=== PATIENT | male | born 1965 | race Caucasian/White ===

== ENCOUNTER → 2017-01-28 | Outpatient (CLI) | payer BC ==
--- NOTE | 2017-01-29 08:23 | US ---
EXAMINATION TYPE: US scrotum with doppler. Grayscale and color Doppler Duplex imaging performed of t kristen scrotum. DATE OF EXAM: 01/28/2017 COMPARISON: NONE CLINICAL HISTORY: Swelling Left testicular N50.89. EXAM MEASUREMENTS: TESTICLES: Right Testicle: 3.6 x 2.6 x 3.7 cm Left Testicle: 3.3 x 2.5 x 3.5 cm EPIDIDYMIS HEAD: Right Epididymis: 0.6 x 0.8 x 0.8 cm Left Epididymis: 1.1 x 0.9 x 1.1 cm Doppler performed to assess for testicular vascularity; good bilateral color flow and waveforms are s een. There is no evidence of testicular torsion. Presence of hydroceles: NO Presence of varicoceles: NO IMPRESSION: 1. Normal testicular ultrasound
== END | disposition home or self-care (01) ==
LOC: RADUSMAIN 16:52
PROVIDERS: ATTEND Physician Assistant Medical
DX: N45.1 Epididymitis (principal); N50.89 Other specified disorders of the male genital organs
CPT/HCPCS: 76870; 93975

== ENCOUNTER 2017-07-23 10:31 | Day surgery (SDC) | payer BC, OTHER ==
[2017-07-22 11:18] VITALS: BMI 38.7
[~2017-07-23 10:31] MED LIST: LACTATED RINGERS 1,000 ML IV SCH
[2017-07-23 11:36] VITALS: RESP 16; TEMP 97.6
[2017-07-23] MEDS ORDERED: LIDOCAINE 1% 20 ML VIAL (10MG/ML) FOR IV START INTRADERMA ONE (11:36)
[2017-07-23 11:55] LABS: Anisocytosis Marked; Basophils # (A) 0.1 k/uL (0-0.2); Basophils % (A) 1 %; Eosinophils # (A) 0.2 k/uL (0-0.7); Eosinophils % (A) 3 %; HGB 12.8 gm/dL (13.0-17.5); Hypochromasia Marked; Lymphocytes # (A) 2.3 k/uL (1.0-4.8); Lymphocytes % (A) 37 %; MCH 20.6 pg (25.0-35.0); MCHC 30.5 g/dL (31.0-37.0); MCV 67.5 fL (80.0-100.0); Mean Platelet Volume 6.6; Microcytosis Marked; Monocytes # (A) 0.4 k/uL (0-1.0); Monocytes % (A) 7 %; Neutrophils # (A) 3.2 k/uL (1.3-7.7); Neutrophils % (A) 50 %; Platelet Count 388 k/uL (150-450); RBC 6.22 m/uL (4.30-5.90); WBC 6.3 k/uL (3.8-10.6)
[2017-07-23 12:01] LABS: RDW 27.2 % (11.5-15.5)
[2017-07-23] MEDS ORDERED: PROPOFOL 10 MG/ML 20 ML VIAL IV ONE (12:42)
[2017-07-23] MEDS ORDERED: MIDAZOLAM 2 MG/2 ML VIAL ONE (12:42)
[2017-07-23] MEDS ORDERED: fentaNYL (PF) 50 MCG/ML 2 ML AMP ONE (12:42)
--- NOTE | 2017-07-23 13:00 | P.PCN ---
Date of Procedure: 07/23/17 Procedure(s) Performed: BRIEF HISTORY: Patient is a 52-year-old, pleasant, white male, scheduled for an upper endoscopy as a part of evaluation of the iron deficiency anemia. He did have an EGD and colonoscopy in December 2015 showed gastritis and colon polyps. Recently has been having worsening GERD and has been on Prilosec 20 mg daily. He scheduled for an upper endoscopy to rule out any upper GI pathology.. PROCEDURE PERFORMED: Esophagogastroduodenoscopy with biopsy. PREOPERATIVE DIAGNOSIS: Epigastric pain/GERD. IV sedation per anesthesia. PROCEDURE: After informed consent was obtained, the patient was brought into the endoscopy unit. IV sedation was administered by Anesthesia under continuous monitoring. Initially the Olympus GIF-140 video endoscope was inserted into the mouth. Esophagus intubated without any difficulty. It was gradually advanced into the stomach and duodenum and carefully examined. The bulb and the second part of the duodenum appeared normal. Biopsies were done from the duodenum to rule out celiac disease. The scope at this time was withdrawn to the stomach, adequately insufflated with air, and upon careful examination, mucosa of the antrum, had patchy areas of erythema consistent with gastritis and biopsies were done from this area. The body, cardia and the fundus appeared normal. The scope was then withdrawn into the esophagus. The GE junction was located at 39 cm from the incisors. The esophagus appeared normal. There were no erosions or ulcerations seen and the patient tolerated the procedure well. IMPRESSION: 1. Mild antral gastritis. 2. No evidence of esophagitis or peptic ulcer disease. RECOMMENDATIONS: The findings of this examination were discussed with the patient as well as his family. He was advised to follow with the biopsy results. He will continue with Prilosec 20 mg daily and follow a reflux measures..
[2017-07-23 13:47] VITALS: BP 124/76; PULSE 71
[2017-07-23 15:58] LABS: Iron Saturation 5.38 (15.00-50.00)
== END 2017-07-23 13:55 | disposition home or self-care (01) ==
LOC: ORWHC2ENDO 10:31
PROVIDERS: ATTEND Internal Medicine Gastroenterology
DX: K29.50 Unspecified chronic gastritis without bleeding (principal); D50.9 Iron deficiency anemia, unspecified; E78.5 Hyperlipidemia, unspecified; Z79.899 Other long term (current) drug therapy; Z88.5 Allergy status to narcotic agent
CPT/HCPCS: 88305; 82747; 82728; 83540; 83550; 85025; 88342; 43239; J2250; J3010; J2704

== ENCOUNTER 2017-08-18 08:21 | Day surgery (SDC) | payer OTHER ==
[2017-08-16 09:27] VITALS: BMI 38.7
[~2017-08-18 08:21] MED LIST changes: +LIDOCAINE 1% 20 ML VIAL (10MG/ML) FOR IV START INTRADERMA PRN
[2017-08-18 08:38] VITALS: TEMP 98.2
[2017-08-18] MEDS ORDERED: PROPOFOL 10 MG/ML 20 ML VIAL IV ONE (08:59)
[2017-08-18] MEDS ORDERED: KETAMINE 10 MG/ML 20 ML VIAL ONE (08:59)
--- NOTE | 2017-08-18 09:22 | P.PCN ---
Date of Procedure: 08/18/17 Procedure(s) Performed: BRIEF HISTORY: Patient is a 52-year-old pleasant white male, scheduled for an elective colonoscopy as a part of evaluation of intermittent rectal bleeding for the last few days duration. He also has prior history of colon polyps. PROCEDURE PERFORMED: Colonoscopy. PREOPERATIVE DIAGNOSIS: Intermittent rectal bleeding and prior history of colon polyps. IV sedation per Anesthesia. PROCEDURE: After informed consent was obtained, the patient, was brought into the endoscopy unit. IV sedation was administered by Anesthesia under continuous monitoring. Digital rectal examination was normal. Initially the Olympus CF- 160 flexible video colonoscope was then inserted in the rectum, gradually advanced into the cecum without any difficulty. Careful examination was performed as the scope was gradually being withdrawn. Ileocecal valve and the appendiceal orifice were visualized and appeared normal. Prep was excellent. Mucosa of the cecum, ascending colon, transverse colon, descending colon, sigmoid colon, and rectum appeared normal. Scattered sigmoid diverticulosis seen. Retroflexion was performed in the rectum and small internal hemorrhoids were seen. The patient tolerated the procedure well. IMPRESSION: Scattered sigmoid diverticulosis Small internal hemorrhoids No evidence of colorectal neoplasia. RECOMMENDATIONS: Findings of this examination were discussed with the patient as well as his family. He was advised to have a repeat surveillance colonoscopy in 5 years from now because of the prior history of colon polyps..
[2017-08-18 09:28] VITALS: RESP 18
[2017-08-18 09:55] VITALS: BP 139/76; PULSE 69
== END 2017-08-18 10:11 | disposition home or self-care (01) ==
LOC: ORWHC2ENDO 08:21
PROVIDERS: ATTEND Internal Medicine Gastroenterology
DX: K57.30 Diverticulosis of large intestine without perforation or abscess without bleeding (principal); K64.8 Other hemorrhoids; Z86.010 Personal history of colon polyps; K21.9 Gastro-esophageal reflux disease without esophagitis; E66.9 Obesity, unspecified; Z68.38 Body mass index [BMI] 38.0-38.9, adult; Z88.5 Allergy status to narcotic agent; Z79.899 Other long term (current) drug therapy
CPT/HCPCS: 45378; J2704

== ENCOUNTER → 2018-04-13 | Outpatient (CLI) | payer OTHER ==
[2018-04-13 09:31] LABS: Basophils # (A) 0.1 k/uL (0-0.2); Basophils % (A) 1 %; Eosinophils # (A) 0.3 k/uL (0-0.7); Eosinophils % (A) 6 %; HCT 43.7 % (39.0-53.0); HGB 14.1 gm/dL (13.0-17.5); Hypochromasia Slight; Lymphocytes # (A) 2.1 k/uL (1.0-4.8); Lymphocytes % (A) 39 %; MCH 25.5 pg (25.0-35.0); MCHC 32.3 g/dL (31.0-37.0); MCV 78.9 fL (80.0-100.0); Mean Platelet Volume 6.5; Monocytes # (A) 0.4 k/uL (0-1.0); Monocytes % (A) 7 %; Neutrophils # (A) 2.3 k/uL (1.3-7.7); Neutrophils % (A) 43 %; Platelet Count 341 k/uL (150-450); Poikilocytosis Slight; RBC 5.53 m/uL (4.30-5.90); RDW 13.7 % (11.5-15.5); WBC 5.3 k/uL (3.8-10.6)
== END | disposition home or self-care (01) ==
LOC: LABWHC1 08:34
PROVIDERS: ATTEND Internal Medicine Gastroenterology
DX: D64.9 Anemia, unspecified (principal)
CPT/HCPCS: 36415; 85025

== ENCOUNTER → 2021-12-26 | Outpatient (CLI) | payer BC ==
--- NOTE | 2021-12-28 09:04 | XR ---
EXAMINATION TYPE: XR knee complete RT DATE OF EXAM: 12/26/2021 3:56 PM INDICATION: Patient age:Male; 56 years old; Reason for study: [id number] RT KNEE PAIN; COMPARISON: None. TECHNIQUE: The Right knee(s) was examined in frontal, lateral and oblique projections. FINDINGS: No evidence of any acute osseous pathology, joint space narrowing, or soft tissue swellin g. As well as present. There is mild tibial plateau, femoral condyle and patellar osteophyte formatio n. Lateral view is slightly limited but there appears to be related suprapatellar joint effusion. IMPRESSION: 1. No acute osseous pathology. 2. Mild tricompartmental osteoarthritic changes with suspected right knee joint effusion.
== END | disposition home or self-care (01) ==
LOC: RADXRYALE 15:46
PROVIDERS: ATTEND Physician Assistant
DX: M17.11 Unilateral primary osteoarthritis, right knee (principal)

== ENCOUNTER 2023-02-11 17:02 | Inpatient (IN) | payer BC ==
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
[2023-02-11] MEDS ORDERED: SODIUM CHLORIDE 0.9% 1,000 ML IV STA (18:27)
[2023-02-11 19:08] LABS: Basophils % (A) 1 %; Eosinophils # (A) 0.3 k/uL (0-0.7); Eosinophils % (A) 5 %; HCT 47.9 % (39.0-53.0); Lymphocytes # (A) 2.1 k/uL (1.0-4.8); Lymphocytes % (A) 30 %; MCH 29.8 pg (25.0-35.0); MCHC 35.6 g/dL (31.0-37.0); MCV 83.7 fL (80.0-100.0); Monocytes # (A) 0.5 k/uL (0-1.0); Monocytes % (A) 7 %; Neutrophils % (A) 56 %; Platelet Count 258 k/uL (150-450); RBC 5.72 m/uL (4.30-5.90); RDW 12.9 % (11.5-15.5); WBC 7.2 k/uL (3.8-10.6)
[2023-02-11 19:19] LABS: INR 0.9 (<1.2); Partial Thromboplastin Time 24.9 sec (22.0-30.0); Prothrombin Time 10.1 sec (9.0-12.0)
[2023-02-11 19:20] LABS: ALT 51 U/L (4-49); AST 32 U/L (17-59); African American GFR (CKD) >90 (>60 ml/min/1.73 sqM); Albumin 4.4 g/dL (3.5-5.0); Alkaline Phosphatase 73 U/L (38-126); Anion Gap 10 mmol/L; Blood Urea Nitrogen 25 mg/dL (9-20); Calcium 9.5 mg/dL (8.4-10.2); Carbon Dioxide 24 mmol/L (22-30); Chloride 104 mmol/L (98-107); Glucose 94 mg/dL (74-99); Magnesium 2.1 mg/dL (1.6-2.3); Non-African American GFR(CKD) 80 (>60 ml/min/1.73 sqM); Phosphorus 3.8 mg/dL (2.5-4.5); Potassium 4.1 mmol/L (3.5-5.1); Sodium 138 mmol/L (137-145); Total Bilirubin 0.7 mg/dL (0.2-1.3); Total Protein 7.5 g/dL (6.3-8.2)
--- NOTE | 2023-02-11 19:23 | CT ---
EXAMINATION TYPE: CT brain wo con DATE OF EXAM: 02/11/2023 COMPARISON: 1 HISTORY: neuro deficit, headache CT DLP: 1104.[address] of the brain was performed. The ventricles, basal cisterns and sulci overlying the cerebral convexities demonstrate mild enlargem ent. Small area of decreased attenuation left thalamus also reflect acute ischemic insult. No evidenc e for cortical insult on today's study. There is no evidence for intracranial hemorrhage or sulcal effacement. There is decreased attenuation about the periventricular white matter and deep white matter of both c erebral hemispheres, compatible with chronic small vessel ischemia. Differential diagnosis does inclu de demyelination. No mass effects are seen.No midline shift. Osseous calvarium is intact. If symptoms persist consider MRI. IMPRESSION: 1. Acute left thalamic insult. No evidence for cortical insult or hemorrhagic transformation.
--- NOTE | 2023-02-11 19:43 | CT ---
EXAMINATION TYPE: CT angio head neck DATE OF EXAM: 02/11/2023 COMPARISON: none HISTORY: Suspected Stroke. CT DLP: 604.8 mGycm CONTRAST: Performed with IV Contrast, patient injected with 65 ml mL of Isovue 370. Combination Contrast CTA cervical carotids and [place] CTA cervical carotids with 3-D recons truction Contrast CTA of the cervical carotids was performed 3-D reconstruction imaging obtained at a separate workstation. Right carotid system: Mild plaque is seen of the right common carotid artery. There is mild plaque a lso noted at the carotid bulb and proximal ICA. No significant diameter reduction. ECA is patent. Right vertebral artery appears unremarkable. Left carotid system: Mild plaque is seen of the left common carotid artery. There is mild plaque als o noted at the carotid bulb and proximal ICA. No significant diameter reduction. ECA is patent. Lef t vertebral artery appears unremarkable. IMPRESSION: 1. No significant diameter reduction to account for the patient's symptoms. CTA the [place] with 3-D reconstruction Contrast CTA of the the [place] was performed 3-D reconstruction imaging obtained at a separate workstation. Vertebrobasilar system as well as intracranial portions of the internal carotid arteries and their ma ubaldo tributaries are patent. I do not see evidence for sizable aneurysm or vascular malformation. Pl ease note MRI provides greater sensitivity and specificity. Visualized brain appears grossly unremar kable. IMPRESSION: 1. No significant abnormality. NASCET criteria was used in interpretation of this exam?
[2023-02-11] MEDS ORDERED: ASPIRIN 325 MG TAB PO STA (21:08)
[2023-02-11] MEDS: SODIUM CHLORIDE 0.9% 1,000 ML IV SCH (21:45)
--- NOTE | 2023-02-11 22:38 | P.HPIM ---
History of Present Illness H&P Date: 02/11/23 Patient is a 57-year-old male with a PMH of hyperlipidemia who presents to the emergency room with complaints of strokelike symptoms. The patient reports that when he woke up this morning at around 8 AM, he felt that his balance was somewhat off. Over the next 1-2 hours, he noticed his speech was also slurred and that he was having difficulty in word-finding. He also felt mildly confused. The patient's family subsequently woke up throughout the day and noticed that the patient was not quite himself. They decided to bring him to the emergency room. The patient also reports mild blurring of his vision, 4 out of 10 diffuse headache at the time of interview, and mild right arm weakness. Th e patient does report a family history of CVA. He himself is a nonsmoker. The patient's NIH score upon arrival in the emergency room was 2. Code stroke with activated. CT brain revealed an acute thalamic infarct without any cortical insult. CT angiogram of head and neck was negative. The case was discussed by the ED provider with neuro-circulation assistant who recommended that the patient was not a c andidate for TPA. Laboratory evaluation was remarkable for a BUN of 25. ED documentation reviewed and case discussed with ED provider. Review of systems: Pertinent positives and negatives as discussed in HPI, a complete review of systems was performed and all other systems are negative. Physical examination: Vital signs reviewed General: non toxic, no distress, appears at stated age, obese Derm: no unusual rashes/lesions, warm Head: atraumatic, normocephalic, symmetric Eyes: EOMI, no lid lag, anicteric sclera, pupils equal round reactive to light ENT: Nose and ears atraumatic Neck: No cervical lymphadenopathy, trachea midline, supple Mouth: no lip lesion, mucus membranes moist Cardiovascular: S1S2 reg, no murmur, positive dorsalis pedis pulse bilateral, no edema Lungs: CTA bilateral, no rhonchi, no rales, no accessory muscle use Abdominal: soft, nontender to palpation, no guarding Ext: muscle strength 4 out of 5 of right upper extremity at the elbow and wrist, strength 5 out of 5 in all other extremities grossly, no gross muscle atrophy, no contractures, no pronator drift, minimal right facial droop Neuro: CN II-XI grossly intact, no gross focal neuro deficits Psych: Alert, oriented, appropriate affect Assessment: # Acute CVA # Chronic conditions: Hyperlipidemia Imaging: CT brain revealed an acute thalamic infarct without any cortical insult. CT angiogram of head and neck was negative. Data Review: Laboratory evaluation was remarkable for BUN 25 and healthy 51. Plan: Neurology consulted Continue with aspirin Initiate statin Obtain echocardiogram Cardiac monitoring PT and speech consult Check A1c and lipid panel Neurochecks DVT prophylaxis: Lovenox subcu The patient is admitted with an anticipated greater than 2 midnight stay for evaluation of acute CVA CODE STATUS: Full Code Discussed with: Patient, , daughter Anticipated discharge place: Home Past Medical History Past Medical History: GERD/Reflux, GI Bleed, Hyperlipidemia Additional Past Medical History / Comment(s): BLOOD IN STOOL, "low hemoglobin" History of Any Multi-Drug Resistant Organisms: None Reported Past Surgical History: Cholecystectomy, Orthopedic Surgery Additional Past Surgical History / Comment(s): BILAT KNEE ARTHROSCOPY. COLONOSCOPY. EGD Additional Past Anesthesia/Blood Transfusion Reaction / Comment(s): WAS TOLD HE "CAME OUT OF ANESTHESIA FIGHTING AFTER ARTHROSCOPY" Past Psychological History: No Psychological Hx Reported Smoking Status: Never smoker Past Alcohol Use History: None Reported Past Drug Use History: None Reported - Past Family History Mother Family Medical History: CVA/TIA Medications and Allergies Home Medications Medication Instructions Recorded Confirmed Type Diclofenac Sodium [Voltaren] 75 mg PO BID 02/11/23 02/11/23 History Multivitamins, Thera [Multivitamin 1 tab PO DAILY 02/11/23 02/11/23 History (formulary)] Omeprazole 20 mg PO DAILY 02/11/23 02/11/23 History Rosuvastatin [Crestor] 10 mg PO DAILY 02/11/23 02/11/23 History Allergies Allergy/AdvReac Type Severity Reaction Status Date / Time hydrocodone [From [place]] Allergy Rash/Hives Verified 02/11/23 18:46 Physical Exam Vitals: Vital Signs Temp Pulse Resp BP Pulse Ox 02/11/23 19:30 62 20 154/97 99 02/11/23 19:15 59 L 20 154/92 97 02/11/23 19:00 64 18 157/105 97 02/11/23 18:40 67 20 145/89 02/11/23 17:23 98.6 F 71 20 129/85 96 Intake and Output 02/11/23 02/11/23 02/11/23 06:59 14:59 22:59 Other: Weight 108.862 kg Results CBC & Chem 7: 02/11/23 18:45 02/11/23 18:45 Labs: Abnormal Lab Results - Last 24 Hours (Table) 02/11/23 Range/Units 18:45 BUN 25 H (9-20) mg/dL ALT 51 H (4-49) U/L
[2023-02-11] MEDS: ATORVASTATIN 80 MG TAB PO SCH (23:11)
[2023-02-12] MEDS: ASPIRIN 325 MG TAB PO SCH (08:41)
[2023-02-12] MEDS: ENOXAPARIN 40 MG/0.4 ML SYRINGE SQ SCH (08:41)
[2023-02-12] MEDS: ACETAMINOPHEN TAB 325 MG TAB PO PRN ×2 (08:43→15:59)
[2023-02-12] MEDS: SODIUM CHLORIDE 0.9% 1,000 ML IV SCH ×2 (08:49→19:46)
--- NOTE | 2023-02-12 10:39 | P.CNNES ---
History of Present Illness Consult date: 02/12/23 Requesting physician: Shin Landin Reason for Consult: cva History of Present Illness: This is a 57-year-old gentleman who presented emergency department woke up by yesterday around 8:00 in the morning and he notices balance was somewhat off. Patient is accompanied with his who helps with some of the history. Also yesterday he noticed that his speech was off and having slurring the speech and what and felt somewhat confused. Patient last normal state was on 02/10/2023 around 9-10pm and woke up the next day (02/11/2023) around 8am with right facial droop, some slurring speech, speech difficulty and some confusion. Patient presents to our facility on 02/11/2023 around the 1702. Denies history of s troke, atrial fibrillation, blood clots/DVT's. Patient is not on antiplatlets at home. He has hypercholestremia and is on statin. Denies tobacco use or illicit drug use. Some of the workup during his hospital visit consisted of: Hemoglobin A1c is 5.4. CT of the head is reported as acute left thalamic insult. No evidence for cortical insult or hemorrhagic transformation. I personally reviewed the CT and I agree with the report. CT angiography of the head and neck was reported as no significant diameter reduction to account for the patient's symptoms. No significant abnormality per I assume no IV TPA since patient is outside the window for an half hour and the risk outweigh the benefit. Review of Systems Review of system: The 12 point system was reviewed and apparent positive and negative per HPI. Past Medical History Past Medical History: GERD/Reflux, GI Bleed, Hyperlipidemia Additional Past Medical History / Comment(s): BLOOD IN STOOL, "low hemoglobin" History of Any Multi-Drug Resistant Organisms: None Reported Past Surgical History: Cholecystectomy, Orthopedic Surgery Additional Past Surgical History / Comment(s): BILAT KNEE ARTHROSCOPY. COLONOSCOPY. EGD Additional Past Anesthesia/Blood Transfusion Reaction / Comment(s): WAS TOLD HE "CAME OUT OF ANESTHESIA FIGHTING AFTER ARTHROSCOPY" Past Psychological History: No Psychological Hx Reported Smoking Status: Never smoker Past Alcohol Use History: None Reported Past Drug Use History: None Reported - Past Family History Mother Family Medical History: CVA/TIA Medications and Allergies Home Medications Medication Instructions Recorded Confirmed Type Diclofenac Sodium [Voltaren] 75 mg PO BID 02/11/23 02/11/23 History Multivitamins, Thera [Multivitamin 1 tab PO DAILY 02/11/23 02/11/23 History (formulary)] Omeprazole 20 mg PO DAILY 02/11/23 02/11/23 History Rosuvastatin [Crestor] 10 mg PO DAILY 02/11/23 02/11/23 History Allergies Allergy/AdvReac Type Severity Reaction Status Date / Time hydrocodone [From [place]] Allergy Rash/Hives Verified 02/11/23 18:46 Physical Examination - Vital Signs Vital Signs: Vital Signs Temp Pulse Resp BP Pulse Ox 02/12/23 05:53 56 L 16 128/86 97 02/12/23 04:45 54 L 16 115/81 95 02/12/23 02:33 59 L 18 117/86 93 L 02/11/23 21:49 64 20 120/91 96 02/11/23 19:30 62 20 154/97 99 02/11/23 19:15 59 L 20 154/92 97 02/11/23 19:00 64 18 157/105 97 02/11/23 18:40 67 20 145/89 02/11/23 17:23 98.6 F 71 20 129/85 96 Intake and Output 02/11/23 02/12/23 02/12/23 22:59 06:59 14:59 Other: Weight 108.862 kg GENERAL: The patient is lying in bed and is not in acute distress. NEUROLOGICAL: Higher mental function: The patient is awake, alert, oriented to self, place and time. Patient is following commands. No aphasia and no neglect. Cranial nerves: The pupils are round, equal and reactive to light and accommodation. Visual linda are full to confrontation throughout. Extraocular movement is intact no nystagmus is noted. Sensation is normal to touch throughout. Mild right lower facial droop. Hearing is severly decreased throughout bilaterally to hand rub (old and has hearing aids). Tongue is midline and moved [id number] without any difficulty. No dysarthria is noted. Shoulder shrug is normal bilaterally. Motor: The strength is 5 over 5 throughout. Normal tone and bulk. Cerebellum: Normal finger to nose heel to garcia bilaterally. Sensation: Sensation is normal to touch throughout. Reflexes (right/left): 2+ throughout. Plantars are downgoing bilaterally. Results - Laboratory Findings CBC and BMP: 02/11/23 18:45 02/11/23 18:45 Abnormal Lab Findings: Abnormal Labs 02/11/23 18:45 BUN 25 H ALT 51 H Assessment and Plan Assessment: This is a 57-year-old gentleman who presented to our facility because of stroke- like symptoms of having right facial droop, slurring the speech and difficulty getting words out with confusion. In the ED it was felt he had expressive aphasia. He woke up with symptoms yesterday on your 02/11/2023 around the 8:00 in the morning but last normal was night prior at 9-10pm. He did the head shows acute left thalamic stroke Acute left thalamic stroke. No IV TPA since he is on side window. Currently on examination only right lower facial droop. Bilateral hard of hearing (old) Hypercholestremia Obesity Plan: The primary team started him on aspirin 325mg daily. In addition I also started the patient on Plavix 75 mg daily (he was not on antiplatelets prior to this). He is also placed on Lipitor 80 mg daily at bedtime for secondary stroke p rophylaxis. I ordered MRI of the brain. 2-D echo, lipid panel is ordered. I also ordered TSH and urine drug screen. Ordered EEG for his episodes of confusion but likely due to his stroke and unlikely seizures. Every 4 hours neuro checks Continue cardiac monitoring PT OT and MANIPULATOR OPERATOR are consulted We'll defer the rest of the medical management to primary team For DVT prophylaxis the patient is on Lovenox. Thank you for the consultation The plan is discussed with patient and his (who is at bedside). Dr. Santiago will start neurology service tomorrow A.M. Time with Patient: Greater than 30
--- NOTE | 2023-02-12 11:07 | CA ---
Transthoracic Echo Report Name: Juan C Arvizu Age: 57 Gender: M : 1965 Exam Date: 02/12/2023 07:35 Exam Location: [facility] Ht (in): 66 Wt (lb): 240 Ordering Physician: Shin Landin DO Attending/Referring Phys: [id number], [facility] Clinical Director Adelina Pete [facility] Procedure CPT: Indications: Thrombus Cardiac Hx: Technical Quality: Fair Contrast 1: Total Dose (mL): Contrast 2: Total Dose (mL): MEASUREMENTS (Male / Female) Normal Values 2D ECHO LV Diastolic Diameter PLAX 5.0 cm 4.2 - 5.9 / 3.9 - 5.3 cm LV Systolic Diameter PLAX 3.1 cm IVS Diastolic Thickness 0.9 cm 0.6 - 1.0 / 0.6 - 0.9 cm LVPW Diastolic Thickness 0.9 cm 0.6 - 1.0 / 0.6 - 0.9 cm LV Relative Wall Thickness 0.4 Ascending Aorta Diameter 3.5 cm M-MODE Aortic Root Diameter MM 3.2 cm LA Systolic Diameter MM 4.0 cm LA Ao Ratio MM 1.2 AV Cusp Separation MM 1.8 cm DOPPLER AV Peak Velocity 125.8 cm/s AV Peak Gradient 6.3 mmHg AV Mean Velocity 96.7 cm/s AV Mean Gradient 4.0 mmHg AV Velocity Time Integral 29.9 cm LVOT Peak Velocity 113.2 cm/s LVOT Peak Gradient 5.1 mmHg LVOT Velocity Time Integral 25.9 cm Mitral E Point Velocity 67.9 cm/s Mitral A Point Velocity 78.9 cm/s Mitral E to A Ratio 0.9 MV Deceleration Time 200.9 ms LV E' Lateral Velocity 10.8 cm/s Mitral E to LV E' Lateral Ratio 6.3 LV E' Septal Velocity 8.8 cm/s Mitral E to LV E' Septal Ratio 7.7 TR Peak Velocity 244.6 cm/s TR Peak Gradient 23.9 mmHg Right Atrial Pressure 8.0 mmHg Pulmonary Artery Systolic Pressu 31.9 mmHg Right Ventricular Systolic Press 31.9 mmHg FINDINGS Left Ventricle Normal Left ventricular size, wall thickness, systolic function with no obvious regional wall motion abnormalities. Left ventricular ejection fraction is estimated at 55-60%. Right Ventricle Moderate right ventricular dilatation. Mild pulmonary hypertension. Right Atrium Normal right atrial size. Left Atrium Normal left atrial size. Mitral Valve Structurally normal mitral valve. No mitral regurgitation. Aortic Valve Trileaflet aortic valve. No aortic regurgitation. Focal thickening of the aortic valve cusps. Tricuspid Valve Structurally normal tricuspid valve. Mild tricuspid regurgitation. Pulmonic Valve Structurally normal pulmonic valve. Mild pulmonic regurgitation. Pericardium No pericardial effusion. Echo free space anterior to the right ventricle likely represents a fat pad. Aorta Normal size aortic root and proximal ascending aorta. CONCLUSIONS Normal LV systolic function Previewed by: Dr. Leon Ramsey MD (Electronically Signed) Final Date: 12 February 2023 11:07
[2023-02-12] MEDS: CLOPIDOGREL 75 MG TAB PO SCH (12:07)
[2023-02-12] MEDS: CHOLESTYRAMINE (WITH SUGAR) 4 GM PACKET PO SCH (12:57)
[2023-02-12 16:33] LABS: Chol/HDL Ratio 8.6 Ratio; HDL Cholesterol 27.2 mg/dL (40.00-60.00); LDL Cholesterol,Calculated 95.4 mg/dL (0.0-131.0); VLDL Calculation 111.4 mg/dL (5.00-40.00)
--- NOTE | 2023-02-12 17:14 | EEG ---
ELECTROENCEPHALOGRAM REPORT CLINICAL HISTORY: This is a 57-year-old gentleman with episodes of confusion. The video EEG is obtained to evaluate for seizure and epileptiform activity. RELEVANT MEDICATIONS: The patient is not on any antiepileptic drugs. EEG TYPE: A routine 21-channel EEG with video using the 10/20 electrode placement system. DESCRIPTION: Wakefulness and drowsiness are obtained. During awake state, the posterior- dominant rhythm consists of [id number] voltage of 9 Hz activity, that is well modulated and well sustained. There is no physiological stage II sleep architecture. There is no focal slowing. INTERICTAL AND ICTAL: None. ACTIVATION PROCEDURE: Photic stimulation did not evoke a posterior driving response. There is no abnormality during the photic stimulation. Hyperventilation is not performed. CLINICAL INTERPRETATION: This is a normal routine EEG. There is no focal slowing, epileptiform discharge, or seizure on the EEG. A normal routine EEG does not rule out underlying epilepsy. Clinical correlation is recommended. MMMARLEN / SANGEETAN: [id number] / AILYN
--- NOTE | 2023-02-12 17:37 | P.PN ---
Subjective Progress Note Date: 02/12/23 Patient is a 57-year-old male with a PMH of hyperlipidemia who presents to the emergency room with complaints of strokelike symptoms. The patient reports that when he woke up this morning at around 8 AM, he felt that his balance was somewhat off. Over the next 1-2 hours, he noticed his speech was also slurred and that he was having difficulty in word-finding. He also felt mildly confused. The patient's family subsequently woke up throughout the day and noticed that the patient was not quite himself. They decided to bring him to the emergency room. The patient also reports mild blurring of his vision, 4 out of 10 diffuse headache at the time of interview, and mild right arm weakness. The patient does report a family history of CVA. He himself is a nonsmoker. The patient's NIH score upon arrival in the emergency room was 2. Code stroke with activated. CT brain revealed an acute thalamic infarct without any cortical insult. CT angiogram of head and neck was negative. The case was discussed by the ED provider with neuro-museum exhibit designer who recommended that the patient was not a candidate for TPA. Laboratory evaluation was remarkable for a BUN of 25. 02/12 Patient was seen and examined. Still searching for words. Facial droop resolved. Extremity weakness resolved. Echocardiogram shows EF of 55-60%. MRI brain is pending. Neurology has also ordered EEG. Lipid panel shows total cho lesterol of 234, triglyceride of 557 and LDL of 95.4. TSH is 2.39. General: non toxic, no distress, appears at stated age, obese Derm: no unusual rashes/lesions, warm Eyes: EOMI, no lid lag, anicteric sclera ENT: Nose and ears atraumatic Neck: No cervical lymphadenopathy, trachea midline, supple Cardiovascular: S1S2 reg, no murmur, no edema Lungs: CTA bilateral, no rhonchi, no rales, no accessory muscle use Neuro: no gross focal neuro deficits Psych: Alert, oriented, appropriate affect # Acute CVA # Chronic conditions: Hyperlipidemia Based on my assessment of this patient, this patient meets a high complexity level of care. Patient has an acute diagnosis of CVA that poses a threat to life or bodily function. # Acute CVA: MRI brain and EEG pending. Continue ASA 81 mg PO QD. Plavix 75 mg PO QD. Lipitor 80 mg PO QHS. Telemetry monitoring and Neurochecks. PT/OT/ST on board. Neurology on board. I have reviewed the following risk and insurance consultant notes: Neurology note reviewed. I have reviewed the results of the following tests: Lipid panel. TSH. Echocardiogram. I have ordered the following tests: I have discussed the care of this patient with the following independent historian: Case discussed with at bedside. I have independently interpreted the following test below: I have discussed the management of this patient with the following physician: Case discussed with Dr. Pennington. Objective - Vital Signs Vital signs: Vital Signs Temp 98 F 02/12/23 12:00 Pulse 57 L 02/12/23 16:00 Resp 16 02/12/23 16:00 BP 140/79 02/12/23 16:00 Pulse Ox 98 02/12/23 16:00 FiO2 Intake & Output 02/11/23 02/12/23 02/12/23 18:59 06:59 18:59 Weight 108.862 kg 108.862 kg - Labs CBC & Chem 7: 02/11/23 18:45 02/11/23 18:45 Labs: Abnormal Lab Results - Last 24 Hours (Table) 02/11/23 02/11/23 Range/Units 18:45 18:45 BUN 25 H (9-20) mg/dL ALT 51 H (4-49) U/L Triglycerides 557.00 H (0.00-149.00) mg/dL Cholesterol 234.00 H (0.00-200.00) mg/dL VLDL Cholesterol, Calc 111.40 H (5.00-40.00) mg/dL HDL Cholesterol 27.20 L (40.00-60.00) mg/dL
[2023-02-12] MEDS: ATORVASTATIN 80 MG TAB PO SCH (22:01)
[2023-02-13] MEDS: SODIUM CHLORIDE 0.9% 1,000 ML IV SCH ×3 (07:40→20:20)
[2023-02-13] MEDS: CHOLESTYRAMINE (WITH SUGAR) 4 GM PACKET PO SCH (08:46)
[2023-02-13] MEDS: ASPIRIN 81 MG PO SCH (08:46)
[2023-02-13] MEDS: CLOPIDOGREL 75 MG TAB PO SCH (08:46)
[2023-02-13] MEDS: ENOXAPARIN 40 MG/0.4 ML SYRINGE SQ SCH (08:46)
--- NOTE | 2023-02-13 13:57 | P.PN ---
Subjective Progress Note Date: 02/13/23 Patient is a 57-year-old male with a PMH of hyperlipidemia who presents to the emergency room with complaints of strokelike symptoms. The patient reports that when he woke up this morning at around 8 AM, he felt that his balance was somewhat off. Over the next 1-2 hours, he noticed his speech was also slurred and that he was having difficulty in word-finding. He also felt mildly confused. The patient's family subsequently woke up throughout the day and noticed that the patient was not quite himself. They decided to bring him to the emergency room. The patient also reports mild blurring of his vision, 4 out of 10 diffuse headache at the time of interview, and mild right arm weakness. The patient does report a family history of CVA. He himself is a nonsmoker. The patient's NIH score upon arrival in the emergency room was 2. Code stroke with activated. CT brain revealed an acute thalamic infarct without any cortical insult. CT angiogram of head and neck was negative. The case was discussed by the ED provider with neuro-air cargo ground operations supervisor who recommended that the patient was not a candidate for TPA. Laboratory evaluation was remarkable for a BUN of 25. 02/12 Patient was seen and examined. Still searching for words. Facial droop resolved. Extremity weakness resolved. Echocardiogram shows EF of 55-60%. MRI brain is pending. Neurology has also ordered EEG. Lipid panel shows total cho lesterol of 234, triglyceride of 557 and LDL of 95.4. TSH is 2.39. 02/13 Patient was seen and examined. States that speech is better. Weakness is resolving. EEG showing no seizure like activity. MRI brain is still pending. General: non toxic, no distress, appears at stated age, obese Derm: no unusual rashes/lesions, warm Eyes: EOMI, no lid lag, anicteric sclera ENT: Nose and ears atraumatic Neck: No cervical lymphadenopathy, trachea midline, supple Cardiovascular: S1S2 reg, no murmur, no edema Lungs: CTA bilateral, no rhonchi, no rales, no accessory muscle use Neuro: no gross focal neuro deficits Psych: Alert, oriented, appropriate affect # Acute CVA # Chronic conditions: Hyperlipidemia Based on my assessment of this patient, this patient meets a high complexity level of care. Patient has an acute diagnosis of CVA that poses a threat to life or bodily function. # Acute CVA: MRI brain pending. Continue ASA 81 mg PO QD. Plavix 75 mg PO QD. Lipitor 80 mg PO QHS. Telemetry monitoring and Neurochecks. PT/OT/ST on board. Neurology on board. I have reviewed the following automotive consultant notes: Neurology note reviewed. I have reviewed the results of the following tests: EEG I have ordered the following tests: I have discussed the care of this patient with the following independent historian: I have independently interpreted the following test below: I have discussed the management of this patient with the following physician: Objective - Vital Signs Vital signs: Vital Signs Temp 98.0 F 02/13/23 08:40 Pulse 62 02/13/23 13:30 Resp 16 02/13/23 11:52 BP 113/68 02/13/23 11:52 Pulse Ox 95 02/13/23 11:52 FiO2 Intake & Output 02/12/23 02/13/23 02/13/23 18:59 06:59 18:59 Intake Total 118 Output Total 1 Balance 118 -1 Weight 108.862 kg Intake: Oral 118 Output: Urine 1 Other: Voiding Method Toilet # Voids 2 2 - Labs CBC & Chem 7: 02/11/23 18:45 02/11/23 18:45 Labs: Abnormal Lab Results - Last 24 Hours (Table) 02/11/23 Range/Units 18:45 Triglycerides 557.00 H (0.00-149.00) mg/dL Cholesterol 234.00 H (0.00-200.00) mg/dL VLDL Cholesterol, Calc 111.40 H (5.00-40.00) mg/dL HDL Cholesterol 27.20 L (40.00-60.00) mg/dL
--- NOTE | 2023-02-13 14:38 | MR ---
EXAMINATION TYPE: MR brain wo con DATE OF EXAM: 02/13/2023 2:18 PM COMPARISON: 02/11/2023.. CLINICAL INDICATION:Male, 57 years old with history of stroke, Neuro deficit, headache. TECHNIQUE: Multi planar, multi sequence imaging was performed through the brain including: T1, T2, In version recovery, Diffusion weighted imaging, and gradient echo imaging. No gadolinium was given. FINDINGS: There are areas of restricted diffusion within the left thalamus and right cerebellar hemisphere. The selby-white junctions, ventricular system, and cisterns appear unremarkable. . Midline structures show no abnormality. The susceptibility weighted images do not reveal any evidence for micro-hemorrh age. The bone marrow signal is within normal limits. Paranasal sinuses and mastoid air cells: No significant paranasal sinus disease. Visualized orbits: Orbital contents are intact. IMPRESSION: Acute/subacute CVA involving the left thalamus and right cerebellar hemisphere correlate for embolic phenomenon..
--- NOTE | 2023-02-13 15:59 | P.PN ---
Subjective Progress Note Date: 02/13/23 Patient was initially seen by Dr. Harinder Pennington. Please refer to his note for details. Patient is a 57-year-old right-handed male, with acute left thalamic stroke on CT. Patient was not a candidate for TPA. Patient was not taking any antiplatelet medication at home. Patient does have hyperlipidemia, on Crestor at home. Objective - Vital Signs Vital signs: Vital Signs Temp 98.0 F 02/13/23 08:40 Pulse 62 02/13/23 13:30 Resp 16 02/13/23 11:52 BP 113/68 02/13/23 11:52 Pulse Ox 95 02/13/23 11:52 FiO2 Intake & Output 02/12/23 02/13/23 02/13/23 18:59 06:59 18:59 Intake Total 118 Output Total 1 Balance 118 -1 Weight 108.862 kg Intake: Oral 118 Output: Urine 1 Other: Voiding Method Toilet # Voids 2 2 - Exam Patient is a middle aged male, in no acute distress. Patient is alert awake oriented to time place and person. Speech is mild to moderately dysarthric and language functions are normal. Patient can name and repeat very well. Attention, concentration and fund of knowledge is adequate. On cranial nerve examination, pupils are equal, round and reacting to light, visual linda are full on confrontation, with no neglect on double simultaneous stimulation. Extraocular muscles are intact with no nystagmus. Patient has right facial weakness, central type. His tongue protrudes to the midline. Palatal elevation and sensation normal, hearing is slightly decreased, uses hearing aids and shoulder shrug normal, facial sensation normal. On muscle strength testing, there is right pronation, no drift and the strength is normal in arms and legs distally and proximally. Sensory to touch is equal with no neglect on double simultaneous stimulation. Cerebellar function showed ataxia for [id number] testing only on the right, not on the left. No dysdiadochokinesia. No ataxia for [id number] testing on either side. Tone and bulk of muscles normal. Gait normal. On general examination, there is no carotid bruit or murmur, S1-S2 audible. Chest is clear on consultation. Abdomen is soft nontender. No organomegaly, bowel sounds present. Peripheral pulses are present. No edema. - Labs CBC & Chem 7: 02/11/23 18:45 02/11/23 18:45 Labs: Abnormal Lab Results - Last 24 Hours (Table) 02/11/23 Range/Units 18:45 Triglycerides 557.00 H (0.00-149.00) mg/dL Cholesterol 234.00 H (0.00-200.00) mg/dL VLDL Cholesterol, Calc 111.40 H (5.00-40.00) mg/dL HDL Cholesterol 27.20 L (40.00-60.00) mg/dL Assessment and Plan Assessment: Acute ischemic stroke, multifocal involving left thalamus, and multiple small areas in the right cerebellar hemisphere and a suspicious lesion in the right occipital region as well. Event is embolic in nature, probable cardiac source. Patient's initial symptoms were right facial droop, slurring the speech and difficulty getting words out with confusion. In the ED it was felt he had expressive aphasia. He woke up with symptoms yesterday on your 02/11/2023 around the 8:00 in the morning but last normal was night prior at 9-10pm. He did the head shows acute left thalamic stroke Bilateral hard of hearing (old) Hypercholestremia Obesity Plan: The primary team started him on aspirin 325mg daily. In addition Dr. Pennington has also started the patient on Plavix 75 mg daily (he was not on antiplatelets prior to this at home). He is also placed on Lipitor 80 mg daily at bedtime for secondary stroke prophylaxis. MRI of the brain revealed acute/subacute CVA in the left thalamus and right cerebellar hemisphere, correlate for embolic phenomenon. I personally reviewed MRI, agree with the findings. On my review, there is multiple areas of acute ischemia in the right cerebellar hemisphere. Also a suspicious tiny area in the right occipital region as well. Overall this is cardioembolic CVA. 2-D echo revealed normal left ventricular systolic function with EF 55-60%. No obvious regional wall motion abnormalities. Left atrial size is normal. Moderate right ventricle dilation. Recommend transesophageal echocardiogram to rule out embolic source. Consider 30 day event monitor rule out paroxysmal atrial fibrillation. Hemoglobin A1c is 5.4. CT angiography of the head and neck was reported as no significant diameter reduction to account for the patient's symptoms. No significant abnormalities. Lipid panel with cholesterol 234, LDL 107, HDL 27 and triglycerides 557. This was not in a fasting state. We will repeat lipid panel in the morning. Patient currently on Lipitor 80 mg daily, which I agree. Patient was taking Crestor 10 mg at home. TSH is normal. EEG is normal. No epileptiform activity seen. Every 4 hours neuro checks Telemetry monitoring showing sinus rhythm, with sinus bradycardia, some PVCs and PACs. No other arrhythmia PT OT and FIRE ALARM INSTALLER are consulted For DVT prophylaxis the patient is on Lovenox.
[2023-02-13] MEDS: ATORVASTATIN 80 MG TAB PO SCH (20:19)
[2023-02-14] MEDS: CLOPIDOGREL 75 MG TAB PO SCH (08:25)
[2023-02-14] MEDS: ENOXAPARIN 40 MG/0.4 ML SYRINGE SQ SCH (08:25)
[2023-02-14] MEDS: SODIUM CHLORIDE 0.9% 1,000 ML IV SCH ×2 (08:25→18:29)
[2023-02-14] MEDS: CHOLESTYRAMINE (WITH SUGAR) 4 GM PACKET PO SCH (08:25)
[2023-02-14] MEDS: ASPIRIN 81 MG PO SCH (08:25)
--- NOTE | 2023-02-14 10:46 | P.CRDCN ---
History of Present Illness Consult date: 02/14/23 Chief complaint: Slurred speech History of present illness: The patient is a pleasant 57-year-old gentleman with a past medical history significant for mild obesity as well as hypertension was admitted to the hospital with stroke. Apparently he was in his usual state of health until yesterday when he was sitting at home talking to his daughter and he noticed difficulty finding the lewis. He also developed right sided weakness lasted for few minutes only. Subsequently his symptoms resolved completely and has been asymptomatic since then. He underwent further investigation including computed tomography scan of the brain which showed thalamus infarct and subsequently an MRI of the brain which showed thalamus infarct as well as right cerebral infarct as well. Finding concentric for embolic phenomena. We consulted to see the patient to perform transesophageal echocardiogram. No coronary artery disease or congestive heart failure and tachycardia slight atrial fibrillation and the patient stated that he was seen by a spreader operator about a year ago. He does not recall the details at this point. He underwent during this admission an echo which revealed and normal biventricular dimension and systolic function was no significant valvular pathology and no comments on the interatrial septum. The examination is remarkable for stable vital signs with regular rhythm and clear breathing sounds bilaterally and no carotid bruit and no lower extremity edema Assessment Embolic stroke presented as expressive aphasia and right-sided weakness. Symptoms have resolved Hypertension Mild obesity Plan Rule out cardiac arrhythmia. Monitor for atrial fibrillation. Proceed with transesophageal echocardiogram Follow-up with the patient Past Medical History Past Medical History: GERD/Reflux, GI Bleed, Hyperlipidemia Additional Past Medical History / Comment(s): BLOOD IN STOOL, "low hemoglobin" History of Any Multi-Drug Resistant Organisms: None Reported Past Surgical History: Cholecystectomy, Orthopedic Surgery Additional Past Surgical History / Comment(s): BILAT KNEE ARTHROSCOPY. COLONOSC OPY. EGD Additional Past Anesthesia/Blood Transfusion Reaction / Comment(s): WAS TOLD HE "CAME OUT OF ANESTHESIA FIGHTING AFTER ARTHROSCOPY" Past Psychological History: No Psychological Hx Reported Smoking Status: Never smoker Past Alcohol Use History: None Reported Past Drug Use History: None Reported - Past Family History Mother Family Medical History: CVA/TIA Medications and Allergies Home Medications Medication Instructions Recorded Confirmed Type Diclofenac Sodium [Voltaren] 75 mg PO BID 02/11/23 02/11/23 History Multivitamins, Thera [Multivitamin 1 tab PO DAILY 02/11/23 02/11/23 History (formulary)] Omeprazole 20 mg PO DAILY 02/11/23 02/11/23 History Rosuvastatin [Crestor] 10 mg PO DAILY 02/11/23 02/11/23 History Allergies Allergy/AdvReac Type Severity Reaction Status Date / Time hydrocodone [From [place]] Allergy Rash/Hives Verified 02/11/23 18:46 Physical Exam Vitals: Vital Signs Temp Pulse Resp BP Pulse Ox 02/14/23 08:19 59 L 02/14/23 08:00 98.0 F 59 L 16 128/78 94 L 02/14/23 04:00 64 18 130/78 95 02/14/23 00:00 63 18 124/80 96 02/13/23 20:00 98 F 61 16 142/88 96 02/13/23 15:45 98.3 F 59 L 16 143/84 97 02/13/23 13:30 62 02/13/23 11:52 62 16 113/68 95 Intake and Output 02/13/23 02/14/23 02/14/23 22:59 06:59 14:59 Other: Voiding Method Toilet Toilet Toilet # Voids 3 Results 02/11/23 18:45 02/11/23 18:45 Current Medications Generic Name Dose Route Start Last Admin Trade Name Freq PRN Reason Stop Dose Admin Acetaminophen 650 mg 02/11/23 22:57 02/12/23 15:59 Acetaminophen Tab 325 Mg Tab PO 650 mg Q6HR PRN Administration Fever and/ or Pain Aspirin 81 mg 02/13/23 09:00 02/14/23 08:25 Aspirin 81 Mg PO 81 mg DAILY PETRA Administration Atorvastatin Calcium 80 mg 02/11/23 22:45 02/13/23 20:19 Atorvastatin 80 Mg Tab PO 80 mg HS PETRA Administration Cholestyramine Resin 4 gm 02/12/23 13:00 02/14/23 08:25 Cholestyramine (With Sugar) 4 Gm Packet PO 4 gm DAILY@1000 PETRA Administration Clopidogrel Bisulfate 75 mg 02/12/23 09:45 02/14/23 08:25 Clopidogrel 75 Mg Tab PO 75 mg DAILY PETRA Administration Enoxaparin Sodium 40 mg 02/12/23 09:00 02/14/23 08:25 Enoxaparin 40 Mg/0.4 Ml Syringe SQ 40 mg DAILY PETRA Administration Sodium Chloride 1,000 mls @ 100 mls/hr 02/11/23 21:15 02/14/23 08:25 Saline 0.9% IV 100 mls/hr .Q10H PETRA Administration Intake and Output 02/13/23 02/14/23 02/14/23 22:59 06:59 14:59 Other: Voiding Method Toilet Toilet Toilet # Voids 3 02/11/23 18:45 02/11/23 18:45
--- NOTE | 2023-02-14 12:12 | P.PN ---
Subjective Progress Note Date: 02/14/23 Patient is a 57-year-old male with a PMH of hyperlipidemia who presents to the emergency room with complaints of strokelike symptoms. The patient reports that when he woke up this morning at around 8 AM, he felt that his balance was somewhat off. Over the next 1-2 hours, he noticed his speech was also slurred and that he was having difficulty in word-finding. He also felt mildly confused. The patient's family subsequently woke up throughout the day and noticed that the patient was not quite himself. They decided to bring him to the emergency room. The patient also reports mild blurring of his vision, 4 out of 10 diffuse headache at the time of interview, and mild right arm weakness. The patient does report a family history of CVA. He himself is a nonsmoker. The patient's NIH score upon arrival in the emergency room was 2. Code stroke with activated. CT brain revealed an acute thalamic infarct without any cortical insult. CT angiogram of head and neck was negative. The case was discussed by the ED provider with neuro-sld inclusion teacher who recommended that the patient was not a candidate for TPA. Laboratory evaluation was remarkable for a BUN of 25. 02/12 Patient was seen and examined. Still searching for words. Facial droop resolved. Extremity weakness resolved. Echocardiogram shows EF of 55-60%. MRI brain is pending. Neurology has also ordered EEG. Lipid panel shows total cho lesterol of 234, triglyceride of 557 and LDL of 95.4. TSH is 2.39. 02/13 Patient was seen and examined. States that speech is better. Weakness is resolving. EEG showing no seizure like activity. MRI brain is still pending. 02/14 Patient was seen and examined. Weakness and speech has improved. is at bedside. MRI brain shows acute/subacute CVA involving the left thalamus and right cerebral hemisphere correlate for embolic phenomenon. Case is discussed with Dr. Jimenez was agreeable for ROMINA. Plans for event monitor on discharge. General: non toxic, no distress, appears at stated age, obese Derm: no unusual rashes/lesions, warm Eyes: EOMI, no lid lag, anicteric sclera ENT: Nose and ears atraumatic Neck: No cervical lymphadenopathy, trachea midline, supple Cardiovascular: S1S2 reg, no murmur, no edema Lungs: CTA bilateral, no rhonchi, no rales, no accessory muscle use Neuro: no gross focal neuro deficits Psych: Alert, oriented, appropriate affect # Acute CVA # Chronic conditions: Hyperlipidemia Based on my assessment of this patient, this patient meets a high complexity level of care. Patient has an acute diagnosis of CVA that poses a threat to life or bodily function. # Acute CVA: MRI brain as above. Plans for ROMINA in the near future. Continue ASA 81 mg PO QD. Plavix 75 mg PO QD. Lipitor 80 mg PO QHS. Telemetry monitoring and Neurochecks. PT/OT/ST on board. Neurology on board. I have reviewed the following cardiology consultant notes: Cardiology note reviewed. I have reviewed the results of the following tests: MRI brain I have ordered the following tests: I have discussed the care of this patient with the following independent historian: I have independently interpreted the following test below: I have discussed the management of this patient with the following physician: Case discussed with Dr. Jimenez as above. Objective - Vital Signs Vital signs: Vital Signs Temp 98.0 F 02/14/23 08:00 Pulse 60 02/14/23 11:08 Resp 16 02/14/23 11:08 BP 130/76 02/14/23 11:08 Pulse Ox 94 L 02/14/23 11:08 FiO2 Intake & Output 02/13/23 02/14/23 02/14/23 18:59 06:59 18:59 Other: Voiding Method Toilet Toilet Toilet # Voids 2 3 - Labs CBC & Chem 7: 02/11/23 18:45 02/11/23 18:45
[2023-02-14] MEDS: ATORVASTATIN 80 MG TAB PO SCH (20:23)
[2023-02-14 23:22] LABS: Chol/HDL Ratio 6.51 Ratio; LDL Cholesterol,Calculated 81.2 mg/dL (0.0-131.0)
[2023-02-15] MEDS: SODIUM CHLORIDE 0.9% 1,000 ML IV SCH ×2 (06:44→16:21)
[2023-02-15 06:47] VITALS: RESP 18
[2023-02-15] MEDS ORDERED: IV FLUID CONTINUATION 700 ML IV ONE (07:53)
[2023-02-15] MEDS ORDERED: MIDAZOLAM 2 MG/2 ML VIAL IVP ONE ×2 (08:17→08:23)
[2023-02-15] MEDS ORDERED: BENZOCAINE SPRAY 1 CAN TOPICAL ONE (08:18)
[2023-02-15] MEDS ORDERED: fentaNYL (PF) 50 MCG/1 ML VIAL IVP ONE ×2 (08:21)
--- NOTE | 2023-02-15 09:02 | ECHOT ---
TRANSESOPHAGEAL ECHOCARDIOGRAM INDICATION: CVA. PROCEDURE NOTE: After obtaining informed consent, transesophageal echocardiogram was performed in left lateral position using an Omniplane probe. Local and IV sedation were obtained using Xylocaine spray, Versed, and fentanyl. Total sedation time was 10 minutes. The patient tolerated the procedure well without any obvious immediate complications. FINDINGS: 1. There is no intracardiac thrombus within the left atrial appendage, left atrium, right atrium, right ventricle, or left ventricle. 2. Left ventricle has normal size and systolic function. 3. There is no evidence of [id number] shunt by color-flow Doppler or [id number]-[id number] shunt by agitated saline contrast study across the interatrial septum. Mitral valve is anatomically normal. There is mild mitral regurgitation noted. Tricuspid valve shows mild tricuspid regurgitation. Aortic valve is a three-leaflet valve. There is no evidence of aortic stenosis or regurgitation. 4. Aortic root measures within normal limits. CONCLUSIONS: Left ventricular systolic function is normal. No intracardiac thrombus. No evidence of shunting across the interatrial septum. MMODL / IJN: [id number] /
[2023-02-15] MEDS: ASPIRIN 81 MG PO SCH (09:32)
[2023-02-15] MEDS: CHOLESTYRAMINE (WITH SUGAR) 4 GM PACKET PO SCH (09:32)
[2023-02-15] MEDS: ENOXAPARIN 40 MG/0.4 ML SYRINGE SQ SCH (09:32)
[2023-02-15] MEDS: CLOPIDOGREL 75 MG TAB PO SCH (09:32)
[2023-02-15 11:07] VITALS: TEMP 97.6
[2023-02-15 11:09] VITALS: PULSE 63
[2023-02-15] MEDS ORDERED: CYCLOBENZAPRINE 10 MG TAB PO PRN (11:22)
--- NOTE | 2023-02-15 12:03 | P.DS ---
Providers Date of admission: 02/11/23 21:08 Expected date of discharge: 02/15/23 Attending physician: Flora Agosto MD Consults: 02/11/23 21:08 Consult Physician Routine Consulting Provider: Harinder Pennington Consult Reason/Comments: cva Do you want consulting provider notified?: Yes 02/13/23 15:53 Consult Physician Routine Consulting Provider: Ganesh Jimenez Consult Reason/Comments: ROMINA r/t CVA Do you want consulting provider notified?: Yes, Notify in am Primary care physician: [facility] Course: Patient is a 57-year-old male with a PMH of hyperlipidemia who presents to the emergency room with complaints of strokelike symptoms. The patient reports that when he woke up this morning at around 8 AM, he felt that his balance was somewhat off. Over the next 1-2 hours, he noticed his speech was also slurred and that he was having difficulty in word-finding. He also felt mildly confused. The patient's family subsequently woke up throughout the day and noticed that the patient was not quite himself. They decided to bring him to the emergency room. The patient also reports mild blurring of his vision, 4 out of 10 diffuse headache at the time of interview, and mild right arm weakness. The patient does report a family history of CVA. He himself is a nonsmoker. The patient's NIH score upon arrival in the emergency room was 2. Code stroke with activated. CT brain revealed an acute thalamic infarct without any cortical insult. CT angiogram of head and neck was negative. The case was discussed by the ED provider with neuro-manager of compensation who recommended that the patient was not a candidate for TPA. Laboratory evaluation was remarkable for a BUN of 25. 02/12 Patient was seen and examined. Still searching for words. Facial droop resolved. Extremity weakness resolved. Echocardiogram shows EF of 55-60%. MRI brain is pending. Neurology has also ordered EEG. Lipid panel shows total cholesterol of 234, triglyceride of 557 and LDL of 95.4. TSH is 2.39. 02/13 Patient was seen and examined. States that speech is better. Weakness is resolving. EEG showing no seizure like activity. MRI brain is still pending. 02/14 Patient was seen and examined. Weakness and speech has improved. is at bedside. MRI brain shows acute/subacute CVA involving the left thalamus and right cerebral hemisphere correlate for embolic phenomenon. Case is discussed with Dr. Jimenez was agreeable for ROMINA. Plans for event monitor on discharge. 02/15 Patient was seen and examined. No acute events overnight. He underwent ROMINA this morning. Post procedure, he complains of right sided shoulder pain traveling down his right arm. ROMINA negative for shunt or emboli. He will need a 30 days event monitor on discharge, discussed with RN. He is advised to start ASA 81 mg PO QD and Plavix 75 mg PO QD. Discontinue Diclofenac on discharge. Crestor increased to 40 mg PO QD. Home health will be ordered on discharge. His right shoulder pain appears musculoskeletal in nature for which we will try trial of Flexeril. Advised to follow-up with PCP within 1-2 days and neurology within 1 week of discharge. All questions asked by family answered at bedside. Pertinent studies include brain CT, CTA head and neck, echocardiogram, EEG, brain MRI. Pertinent procedures include ROMINA. General: non toxic, no distress, appears at stated age, obese Derm: no unusual rashes/lesions, warm Eyes: EOMI, no lid lag, anicteric sclera ENT: Nose and ears atraumatic Neck: No cervical lymphadenopathy, trachea midline, supple Cardiovascular: S1S2 reg, no murmur, no edema Lungs: CTA bilateral, no rhonchi, no rales, no accessory muscle use MSK: Right shoulder tender to palpation along the paraspinal muscles. Pain with abduction of the R shoulder. Neuro: no gross focal neuro deficits Psych: Alert, oriented, appropriate affect Discharge diagnosis: # Acute CVA # Chronic conditions: Hyperlipidemia This complex discharge took 35 minutes to complete. Patient Condition at Discharge: Stable Plan - Discharge Summary Discharge Rx Participant: No New Discharge Prescriptions: New Aspirin 81 mg PO DAILY #30 tab Cyclobenzaprine [Flexeril] 10 mg PO TID PRN #10 tab PRN Reason: Muscle Spasm Acetaminophen Tab [Tylenol] 650 mg PO Q6HR PRN tab PRN Reason: Fever And/ Or Pain Rosuvastatin Calcium [Crestor] 40 mg PO DAILY #30 tab Clopidogrel [Plavix] 75 mg PO DAILY #30 tab Continue Omeprazole 20 mg PO DAILY Multivitamins, Thera [Multivitamin (formulary)] 1 tab PO DAILY Discontinued Rosuvastatin [Crestor] 10 mg PO DAILY Diclofenac Sodium [Voltaren] 75 mg PO BID Discharge Medication List Multivitamins, Thera [Multivitamin (formulary)] 1 tab PO DAILY 02/11/23 [History] Omeprazole 20 mg PO DAILY 02/11/23 [History] Acetaminophen Tab [Tylenol] 650 mg PO Q6HR PRN tab 02/15/23 [Rx] Aspirin 81 mg PO DAILY #30 tab 02/15/23 [Rx] Clopidogrel [Plavix] 75 mg PO DAILY #30 tab 02/15/23 [Rx] Cyclobenzaprine [Flexeril] 10 mg PO TID PRN #10 tab 02/15/23 [Rx] Rosuvastatin Calcium [Crestor] 40 mg PO DAILY #30 tab 02/15/23 [Rx] Follow up Appointment(s)/Referral(s): Avi Santillan MD [Medical Doctor] - 1 Week Gaetano Borges DO [Primary Care Provider] - 1-2 days Activity/Diet/Wound Care/Special Instructions: Diet: Cardiac Follow up with your PCP within 1-2 days of discharge. Follow up with a Neurologist within 1 week of discharge. Take all medications as advised. Come back to the ED for new onset unilateral numbness/weakness/tinging, slurred speech, confusion. You will need a 30 days event monitor on discharge. Discharge Disposition: HOME SELF-CARE
[2023-02-15 13:38] VITALS: BP 143/80
--- NOTE | 2023-02-16 11:07 | P.PN ---
Subjective Progress Note Date: 02/15/23 02/15/2023: Patient was seen for a follow-up. Patient's was also present today. Patient's speech is better. He is more comfortable talking and speaking. No new neurological symptoms. 02/13/2023: Patient was initially seen by Dr. Harinder Pennington. Please refer to his note for details. Patient is a 57-year-old right-handed male, with acute left thalamic stroke on CT. Patient was not a candidate for TPA. Patient was not taking any antiplatelet medication at home. Patient does have hyperlipidemia, on Crestor at home. Objective - Vital Signs Vital signs: Vital Signs Temp 97.6 F 02/15/23 08:00 Pulse 63 02/15/23 12:00 Resp 18 02/15/23 08:00 BP 143/80 02/15/23 12:00 Pulse Ox 95 02/15/23 12:00 FiO2 Intake & Output 02/14/23 02/15/23 02/15/23 18:59 06:59 18:59 Intake Total 240 193 Balance 240 193 Intake: IV 75 Oral 240 118 Other: Voiding Method Toilet Toilet Toilet # Voids 2 3 - Exam Patient is a middle aged male, in no acute distress. Patient is alert awake oriented to time place and person. Speech is mildly dysarthric and language functions are normal. Patient can name and repeat very well. Attention, concentration and fund of knowledge is adequate. On cranial nerve examination, pupils are equal, round and reacting to light, visual linda are full on confrontation, with no neglect on double simultaneous stimulation. Extraocular muscles are intact with no nystagmus. Patient has right facial weakness, central type. His tongue protrudes to the midline. Palatal elevation and sensation normal, hearing is slightly decreased, uses hearing aids and shoulder shrug normal, facial sensation normal. On muscle strength testing, there is right pronation, no drift and the strength is normal in arms and legs distally and proximally. Sensory to touch is equal with no neglect on double simultaneous stimulation. Cerebellar function showed ataxia for aqdlri-yb-cneo testing only on the right, not on the left. No dysdiadochokinesia. No ataxia for efmq-gn-fynx testing on either side. Tone and bulk of muscles normal. Gait normal. On general examination, there is no carotid bruit or murmur, S1-S2 audible. Chest is clear on consultation. Abdomen is soft nontender. No organomegaly, bowel sounds present. Peripheral pulses are present. No edema. - Labs CBC & Chem 7: 02/11/23 18:45 02/11/23 18:45 Labs: Abnormal Lab Results - Last 24 Hours (Table) 02/14/23 Range/Units 10:30 Triglycerides 343.00 H (0.00-149.00) mg/dL VLDL Cholesterol, Calc 68.60 H (5.00-40.00) mg/dL HDL Cholesterol 27.20 L (40.00-60.00) mg/dL Assessment and Plan Assessment: Acute ischemic stroke, multifocal involving left thalamus, and multiple small areas in the right cerebellar hemisphere and a suspicious lesion in the right occipital region as well. Event is embolic in nature, probable cardiac source. Patient's initial symptoms were right facial droop, slurring the speech and difficulty getting words out with confusion. In the ED it was felt he had expressive aphasia. He woke up with symptoms yesterday on your 02/11/2023 around the 8:00 in the morning but last normal was night prior at 9-10pm. He did the head shows acute left thalamic stroke Bilateral hard of hearing (old) Hypercholestremia Obesity Plan: The primary team started him on aspirin 325mg daily. In addition Dr. Pennington has also started the patient on Plavix 75 mg daily (he was not on any antiplatelets prior to this at home). He is also placed on Lipitor 80 mg daily at bedtime for secondary stroke prophylaxis. Recommend patient continue aspirin and Plavix together for 30 days, then stop Plavix and continue aspirin indefinitely. MRI of the brain revealed acute/subacute CVA in the left thalamus and right cerebellar hemisphere, correlate for embolic phenomenon. I personally reviewed MRI, agree with the findings. On my review, there is multiple areas of acute ischemia in the right cerebellar hemisphere. Also a suspicious tiny area in the right occipital region as well. Overall this is cardioembolic CVA. 2-D echo revealed normal left ventricular systolic function with EF 55-60%. No obvious regional wall motion abnormalities. Left atrial size is normal. Moderate right ventricle dilation. Transesophageal echocardiogram revealed normal left ventricular systolic function. No intracardiac thrombus. No evidence of shunting across the interatrial septum. Patient has been hooked up with 30 day event monitor rule out paroxysmal atrial fibrillation. Hemoglobin A1c is 5.4. CT angiography of the head and neck was reported as no significant diameter reduction to account for the patient's symptoms. No significant abnormalities. Fasting lipid panel with cholesterol 177, LDL 81, HDL 27 and triglycerides 343. Continue Lipitor 80 mg daily, which I agree. Patient was taking Crestor 10 mg at home. TSH is normal. EEG is normal. No epileptiform activity seen. Telemetry monitoring showing sinus rhythm, with sinus bradycardia, some PVCs and PACs. No other arrhythmia PT OT and SOFTBALL UMPIRE are consulted Neurologically clear for discharge. Patient will follow with neurology in 1-2 w eeks.
== END 2023-02-15 16:47 | disposition home or self-care (01) | DRG 66 ==
LOC: EC 17:02 → 3SCARD 21:08
PROVIDERS: ADMIT Internal Medicine; ATTEND Internal Medicine
PROC: B24BZZ4 Ultrasonography of Heart with Aorta, Transesophageal (ICD-10-PCS; principal; 2023-02-15 13:00)
DX: I63.89 Other cerebral infarction (principal); G83.21 Monoplegia of upper limb affecting right dominant side; R47.01 Aphasia; R29.810 Facial weakness; R47.81 Slurred speech; R29.702 NIHSS score 2; R29.704 NIHSS score 4; R47.1 Dysarthria and anarthria; Z28.310 Unvaccinated for COVID-19; M25.511 Pain in right shoulder; I10 Essential (primary) hypertension; R00.1 Bradycardia, unspecified; E78.5 Hyperlipidemia, unspecified; H91.90 Unspecified hearing loss, unspecified ear; E66.9 Obesity, unspecified; Z68.38 Body mass index [BMI] 38.0-38.9, adult; K21.9 Gastro-esophageal reflux disease without esophagitis; Z79.899 Other long term (current) drug therapy; Z88.5 Allergy status to narcotic agent; Z82.3 Family history of stroke
CPT/HCPCS: 36415; 70450; 70496; 70498; 70551; 80053; 80061; 83036; 83721; 83735; 84100; 84443; 85025; 85610; 85730; 93005; 93270; 93306; 93312; 93320; 93325; 94760; 95819; 96360; 96361; 96372; 99285

== ENCOUNTER 2023-02-17 17:36 | Inpatient (IN) | payer BC ==
--- NOTE | 2023-02-17 18:15 | CT ---
EXAMINATION TYPE: CT brain wo con for TPA DATE OF EXAM: 02/17/2023 COMPARISON: 02/11/2023 INDICATION: cva DLP: 1100.9 mGycm, Automated exposure control for dose reduction was used. CONTRAST: None CT of the brain is performed utilizing 3 mm thick sections through the posterior fossa and 3 mm thick sections through the remaining calvarium. Study is performed within 24 hours of arrival to the hosp ital. No abnormal hyperdensity is present to suggest an acute intracranial hemorrhage. No mass lesion is evident. There is a 1.3 cm hypodensity within the left thalamus may be an evolving lacunar infarct. Ventricles and sulci are appropriate for the patient age. Paranasal sinuses and mastoid air cells within the ohojp-xo-pvdy are clear. IMPRESSIONS: 1. Evolving left thalamic lacunar infarct. 2. No new suspicious acute changes. Follow-up MRI can be performed as clinically indicated
[2023-02-17 18:21] LABS: INR 0.9 (<1.2); Partial Thromboplastin Time 24.8 sec (22.0-30.0); Prothrombin Time 10.1 sec (9.0-12.0)
[2023-02-17 18:22] LABS: Basophils # (A) 0.1 k/uL (0-0.2); Basophils % (A) 1 %; Eosinophils # (A) 0.4 k/uL (0-0.7); Eosinophils % (A) 4 %; HCT 50.4 % (39.0-53.0); HGB 17.7 gm/dL (13.0-17.5); Lymphocytes # (A) 2.6 k/uL (1.0-4.8); Lymphocytes % (A) 28 %; MCH 29.1 pg (25.0-35.0); MCHC 35.1 g/dL (31.0-37.0); MCV 82.8 fL (80.0-100.0); Mean Platelet Volume 7.2; Monocytes # (A) 0.6 k/uL (0-1.0); Monocytes % (A) 6 %; Neutrophils # (A) 5.5 k/uL (1.3-7.7); Neutrophils % (A) 59 %; Platelet Count 279 k/uL (150-450); RBC 6.09 m/uL (4.30-5.90); RDW 13.1 % (11.5-15.5); WBC 9.3 k/uL (3.8-10.6)
[2023-02-17 18:25] LABS: ALT 110 U/L (4-49); African American GFR (CKD) >90 (>60 ml/min/1.73 sqM); Albumin 4.7 g/dL (3.5-5.0); Anion Gap 13 mmol/L; Blood Urea Nitrogen 22 mg/dL (9-20); Calcium 9.6 mg/dL (8.4-10.2); Carbon Dioxide 20 mmol/L (22-30); Chloride 105 mmol/L (98-107); Creatine Kinase 65 U/L (55-170); Glucose 99 mg/dL (74-99); Non-African American GFR(CKD) 83 (>60 ml/min/1.73 sqM); Sodium 138 mmol/L (137-145); Total Bilirubin 0.8 mg/dL (0.2-1.3); Total Protein 7.8 g/dL (6.3-8.2)
[2023-02-17 18:45] LABS: AST 65 U/L (17-59); Alkaline Phosphatase 87 U/L (38-126); Potassium 4.4 mmol/L (3.5-5.1)
--- NOTE | 2023-02-17 18:56 | XR ---
EXAMINATION TYPE: XR chest 2V DATE OF EXAM: 02/17/2023 COMPARISON: None INDICATION: Altered mental status TECHNIQUE: Frontal and lateral views of the chest are obtained. FINDINGS: The heart size is normal. The pulmonary vasculature is normal. The lungs are clear. IMPRESSION: 1. No acute pulmonary process.
--- NOTE | 2023-02-17 19:31 | ED ---
General Adult HPI - General Chief complaint: Neuro Symptoms/Deficit Stated complaint: Confusion, just DC yesterday for Stroke Time Seen by Provider: 02/17/23 17:40 Source: EMS Mode of arrival: EMS Limitations: no limitations - History of Present Illness Initial comments: 57-year-old male with recent diagnosis of thalamic CVA who presents to the emergency department with global confusion. and daughter at bedside and provide a history. He recently presented to the hospital on the and was diagnosed with a left thalamic stroke. He was hospitalized and had an MRI which demonstrated an additional right cerebellar stroke. There was concern for thromboembolic event and therefore he had a ROMINA performed. There was no signs of thrombus or shunt. He was discharged from the hospital yesterday on aspirin and Plavix. They do believe that the patient took the medications this morning. Daughter was with him all day and states that he was acting normally. Around 4:30 the patient became acutely confused. She states that he was unsure of why he was not at work. He didn't know the date. He did not remember being hospitalized for the stroke. EMS was immediately called. He denies any lateralizing weakness. No speech difficulties. No visual changes. No other alleviating, precipitating or modifying factors - Related Data Home Medications Medication Instructions Recorded Confirmed Multivitamins, Thera [Multivitamin 1 tab PO DAILY 02/11/23 02/17/23 (formulary)] Omeprazole 20 mg PO DAILY 02/11/23 02/17/23 Previous Rx's Medication Instructions Recorded Acetaminophen Tab [Tylenol] 650 mg PO Q6HR PRN tab 02/15/23 Aspirin 81 mg PO DAILY #30 tab 02/15/23 Clopidogrel [Plavix] 75 mg PO DAILY #30 tab 02/15/23 Cyclobenzaprine [Flexeril] 10 mg PO TID PRN #10 tab 02/15/23 Rosuvastatin Calcium [Crestor] 40 mg PO DAILY #30 tab 02/15/23 Allergies Allergy/AdvReac Type Severity Reaction Status Date / Time hydrocodone [From [place]] Allergy Rash/Hives Verified 02/17/23 20:28 Review of Systems ROS Statement: Those systems with pertinent positive or pertinent negative responses have been documented in the HPI. ROS Other: All systems not noted in ROS Statement are negative. Past Medical History Past Medical History: GERD/Reflux, GI Bleed, Hyperlipidemia Additional Past Medical History / Comment(s): BLOOD IN STOOL, "low hemoglobin" History of Any Multi-Drug Resistant Organisms: None Reported Past Surgical History: Cholecystectomy, Orthopedic Surgery Additional Past Surgical History / Comment(s): BILAT KNEE ARTHROSCOPY. COLONOSCOPY. EGD Additional Past Anesthesia/Blood Transfusion Reaction / Comment(s): WAS TOLD HE "CAME OUT OF ANESTHESIA FIGHTING AFTER ARTHROSCOPY" Past Psychological History: No Psychological Hx Reported Smoking Status: Never smoker Past Alcohol Use History: None Reported Past Drug Use History: None Reported - Past Family History Mother Family Medical History: CVA/TIA General Exam Limitations: no limitations General appearance: alert, in no apparent distress, other (Oriented only to self) Head exam: Present: atraumatic, normocephalic, normal inspection Eye exam: Present: normal appearance, PERRL, EOMI. Absent: scleral icterus, conjunctival injection, periorbital swelling ENT exam: Present: normal exam, mucous membranes moist Neck exam: Present: normal inspection. Absent: tenderness, meningismus, lymphadenopathy Respiratory exam: Present: normal lung sounds bilaterally. Absent: respiratory distress, wheezes, rales, rhonchi, stridor Cardiovascular Exam: Present: regular rate, normal rhythm, normal heart sounds. Absent: systolic murmur, diastolic murmur, rubs, gallop, clicks GI/Abdominal exam: Present: soft, normal bowel sounds. Absent: distended, tenderness, guarding, rebound, rigid Extremities exam: Present: normal inspection, full ROM, normal capillary refill. Absent: tenderness, pedal edema, joint swelling, calf tenderness Back exam: Present: normal inspection Neurological exam: Present: alert, CN II-XII intact Psychiatric exam: Present: normal affect, normal mood Skin exam: Present: warm, dry, intact, normal color. Absent: rash Course Vital Signs 02/17/23 02/17/23 02/17/23 17:43 19:00 19:34 Pulse Rate 73 65 70 Respiratory 18 12 18 Rate Blood Pressure 151/101 134/93 126/95 O2 Sat by Pulse 94 L 97 97 Oximetry 02/17/23 02/17/23 02/17/23 20:00 21:00 22:00 Pulse Rate 73 68 65 Respiratory 16 18 16 Rate Blood Pressure 126/95 136/88 147/90 O2 Sat by Pulse 97 98 95 Oximetry 02/17/23 23:28 Pulse Rate 71 Respiratory 18 Rate Blood Pressure 135/87 O2 Sat by Pulse 96 Oximetry - Reevaluation(s) Reevaluation #1: Family was requesting transfer to outside facility. I called and spoke with [facility] who states that they do not have capacity to accept the patient at this time 02/17/232015 Reevaluation #2: Called and spoke with [facility] who was agreeable to accept transfer of the patient - accepting is Dr. Najera 02/17/232032 Reevaluation #3: Spoke with family stating that the patient has been accepted. They state that they have now changed their mind and want to speak to Dr. Colmenares who is available in the emergency department before transfer. Also state that they may consider [facility]. Dr. Colmenares does enter the room to evaluate the patient 02/17/23 20:50 Reevaluation #4: Dr. Colmenares just completed his evaluation of the patient. He wants a stat MRI which is able to be obtained within an hour. Spoke with the family who was a greeable to be admitted for facility here. We did call [facility] at this time to cancel transfer 02/17/230 Medical Decision Making - Medical Decision Making Was pt. sent in by a medical professional or institution (, PA, BRANCH DIRECTOR, urgent care, hospital, or group home...) When possible be specific @ -No Did you speak to anyone other than the patient for history (EMS, parent, family, police, friend...)? What history was obtained from this source @ -I spoke with EMS, the daughter and the Did you review nursing and triage notes (agree or disagree)? Why? @ -I reviewed and agree with nursing and triage notes Were old charts reviewed (outside hosp., previous admission, EMS record, old EKG, old radiological studies, urgent care reports/EKG's, group home records)? Report findings @ -Review the patient's discharge summary from yesterday. Also reviewed the results of his ROMINA and MRI from his most recent hospitalization Differential Diagnosis (chest pain, altered mental status, abdominal pain women, abdominal pain men, vaginal bleeding, weakness, fever, dyspnea, syncope, headache, dizziness, GI bleed, back pain, seizure, CVA, palpatations, mental health, musculoskeletal)? @ -Differential CVA Ischemic stroke, hemorrhagic stroke, brain tumor, atypical migraine, Wernicke's encephalopathy, seizure, multiple sclerosis, meningitis, encephalitis, hypoglycemia, Guillain-Feldman, electrolytes disturbance, myasthenia gravis.... This is not meant to be an all-inclusive list EKG interpreted by me (3pts min.). @ -yes, and demonstrates sinus rhythm rate 72. MN interval 165. QRS 110. QTC 429. No acute ST segment elevations or depressions X-rays interpreted by me (1pt min.). @ -Yes and demonstrates no acute intrathoracic process CT interpreted by me (1pt min.). @ -Yes and demonstrates of THALAMIC stroke without signs of new stroke U/S interpreted by me (1pt. min.). @ -None done What testing was considered but not performed or refused? (CT, X-rays, U/S, labs)? Why? @ -None What meds were considered but not given or refused? Why? @ -None Did you discuss the management of the patient with other professionals (professionals i.e. , PA, BRANCH DIRECTOR, lab, RT, psych nurse, health care social worker, radiotelephone technical operator, te acher, audit officer, geriatric case manager)? Give summary @ -I spoke with Dr. Santiago as well as with [facility] and Dr. Najera at [facility] as originally the family was requesting transfer Was smoking cessation discussed for >3mins.? @ -No Was critical care preformed (if so, how long)? @ -Yes, 35 minutes for code stroke activation Were there social determinants of health that impacted care today? How? (Homelessness, low income, unemployed, alcoholism, drug addiction, transportation, low edu. Level, literacy, decrease access to med. care, penitentiary, rehab)? @ -No Was there de-escalation of care discussed even if they declined (Discuss DNR or withdrawal of care, Hospice)? DNR status @ -No What co-morbidities impacted this encounter? (DM, HTN, Smoking, COPD, CAD, Cancer, CVA, ARF, Chemo, Hep., AIDS, mental health diagnosis, sleep apnea, morbid obesity)? @ -Recent ischemic CVA Was patient admitted / discharged? Hospital course, mention meds given and route, prescriptions, significant lab abnormalities, going to OR and other pertinent info. @ -Upon arrival patient was placed in room 18. A thorough history and physical exam was performed. Patient does have global confusion. He is activated as a code stroke. IV is established and laboratory studies were conducted. He does go for CT and CT angiography of his head. CT and CT angiography demonstrate the above thalamic stroke without signs of new stroke. No vascular occlusion. Dr. Pérez states that the patient should be medically managed. Called and spoke with Dr. Colmenares who states that the patient can be switched to Brillinta and aspirin. Patient did already receive these medications today and therefore he can get them tomorrow. I did discuss admission with the family. They were requesting transfer to outside facility as they did not like having to wait for 2 days in the emergency department last time they were admitted. They requested [facility] for which I called and they stated that they could not accept due to capacity. They then requested at [facility]. I did get acceptance there and we did call EMS to transport the patient. I went back to speak with the patient in regards to acceptance at [facility] however family has now changed their mind. They would like to speak to Dr. Colmenares and be evaluated before transfer. They also state that they're considering [facility] as an option. Dr. Santiago is in the emergency department and does go to evaluate the patient. He recommends stat MRI which is able to be obtained within one hour. I did discuss this with the family. They are agreeable to stay at this time. We did call [place] and informed them that the transfer will be canceled. Patient will be admitted to [place] emergency department physicians. Spoke with Dr. Moe who agreed to admit the patient and Dr. Santiago will remain on consult Undiagnosed new problem with uncertain prognosis? @ -Yes Drug Therapy requiring intensive monitoring for toxicity (Heparin, Nitro, Insulin, Cardizem)? @ -No Were any procedures done? @ -No Diagnosis/symptom? @ -Acute transient global amnesia, possible TIA Acute, or Chronic, or Acute on Chronic? @ -Acute Uncomplicated (without systemic symptoms) or Complicated (systemic symptoms)? @ -Complicated Side effects of treatment? @ -Bleeding Exacerbation, Progression, or Severe Exacerbation? @ -No Poses a threat to life or bodily function? How? (Chest pain, USA, MD, pneumonia, PE, COPD, DKA, ARF, appy, cholecystitis, CVA, Diverticulitis, Homicidal, Danuta cidal, threat to staff... and all critical care pts) @ -Yes patient has suffered from possible recurrent CVA - Lab Data Result diagrams: 02/17/23 17:55 02/17/23 17:55 Lab Results 02/17/23 02/17/23 02/17/23 Range/Units 17:55 17:55 17:55 WBC 9.3 (3.8-10.6) k/uL RBC 6.09 H (4.30-5.90) m/uL Hgb 17.7 H (13.0-17.5) gm/dL Hct 50.4 (39.0-53.0) % MCV 82.8 (80.0-100.0) fL MCH 29.1 (25.0-35.0) pg MCHC 35.1 (31.0-37.0) g/dL RDW 13.1 (11.5-15.5) % Plt Count 279 (150-450) k/uL MPV 7.2 Neutrophils % 59 % Lymphocytes % 28 % Monocytes % 6 % Eosinophils % 4 % Basophils % 1 % Neutrophils # 5.5 (1.3-7.7) k/uL Lymphocytes # 2.6 (1.0-4.8) k/uL Monocytes # 0.6 (0-1.0) k/uL Eosinophils # 0.4 (0-0.7) k/uL Basophils # 0.1 (0-0.2) k/uL PT 10.1 (9.0-12.0) sec INR 0.9 (<1.2) APTT 24.8 (22.0-30.0) sec Sodium 138 (137-145) mmol/L Potassium 4.4 (3.5-5.1) mmol/L Chloride 105 (98-107) mmol/L Carbon Dioxide 20 L (22-30) mmol/L Anion Gap 13 mmol/L BUN 22 H (9-20) mg/dL Creatinine 0.99 (0.66-1.25) mg/dL Est GFR (CKD-EPI)AfAm >90 (>60 ml/min/1.73 sqM) Est GFR (CKD-EPI)NonAf 83 (>60 ml/min/1.73 sqM) Glucose 99 (74-99) mg/dL Calcium 9.6 (8.4-10.2) mg/dL Total Bilirubin 0.8 (0.2-1.3) mg/dL AST 65 H (17-59) U/L ALT 110 H (4-49) U/L Alkaline Phosphatase 87 (38-126) U/L Creatine Kinase 65 (55-170) U/L Troponin I (0.000-0.034) ng/mL Total Protein 7.8 (6.3-8.2) g/dL Albumin 4.7 (3.5-5.0) g/dL Urine Color Urine Appearance (Clear) Urine pH (5.0-8.0) Ur Specific [place] (1.001-1.035) Urine Protein (Negative) Urine Glucose (UA) (Negative) Urine Ketones (Negative) Urine Blood (Negative) Urine Nitrite (Negative) Urine Bilirubin (Negative) Urine Urobilinogen (<2.0) mg/dL Ur Leukocyte Esterase (Negative) 02/17/23 02/17/23 Range/Units 17:55 22:20 WBC (3.8-10.6) k/uL RBC (4.30-5.90) m/uL Hgb (13.0-17.5) gm/dL Hct (39.0-53.0) % MCV (80.0-100.0) fL MCH (25.0-35.0) pg MCHC (31.0-37.0) g/dL RDW (11.5-15.5) % Plt Count (150-450) k/uL MPV Neutrophils % % Lymphocytes % % Monocytes % % Eosinophils % % Basophils % % Neutrophils # (1.3-7.7) k/uL Lymphocytes # (1.0-4.8) k/uL Monocytes # (0-1.0) k/uL Eosinophils # (0-0.7) k/uL Basophils # (0-0.2) k/uL PT (9.0-12.0) sec INR (<1.2) APTT (22.0-30.0) sec Sodium (137-145) mmol/L Potassium (3.5-5.1) mmol/L Chloride (98-107) mmol/L Carbon Dioxide (22-30) mmol/L Anion Gap mmol/L BUN (9-20) mg/dL Creatinine (0.66-1.25) mg/dL Est GFR (CKD-EPI)AfAm (>60 ml/min/1.73 sqM) Est GFR (CKD-EPI)NonAf (>60 ml/min/1.73 sqM) Glucose (74-99) mg/dL Calcium (8.4-10.2) mg/dL Total Bilirubin (0.2-1.3) mg/dL AST (17-59) U/L ALT (4-49) U/L Alkaline Phosphatase (38-126) U/L Creatine Kinase (55-170) U/L Troponin I <0.012 (0.000-0.034) ng/mL Total Protein (6.3-8.2) g/dL Albumin (3.5-5.0) g/dL Urine Color Light Yellow Urine Appearance Clear (Clear) Urine pH 5.0 (5.0-8.0) Ur Specific [place] 1.027 (1.001-1.035) Urine Protein Negative (Negative) Urine Glucose (UA) Negative (Negative) Urine Ketones Negative (Negative) Urine Blood Negative (Negative) Urine Nitrite Negative (Negative) Urine Bilirubin Negative (Negative) Urine Urobilinogen <2.0 (<2.0) mg/dL Ur Leukocyte Esterase Negative (Negative) Disposition Clinical Impression: Cerebrovascular accident (CVA), Transient global amnesia Disposition: ADMITTED IP TO THIS [facility] Condition: Serious Is patient prescribed a controlled substance at d/c from ED?: No Time of Disposition: 22:58 Decision to Admit Reason: Admit from EC Decision Date: 02/17/23 Decision Time: 22:58
--- NOTE | 2023-02-17 19:48 | CT ---
EXAMINATION TYPE: CT angio head neck DATE OF EXAM: 02/17/2023 HISTORY: cva COMPARISON: CT DLP: 682.5 mGycm. Automated Exposure Control for Dose Reduction was Utilized. TECHNIQUE: CTA scan of the neck is performed with IV Contrast, patient injected with 65cc mL of Isov ue 370, axial images are obtained, coronal and sagittal reformatted images are reviewed. Three-D maribell nstructed images are created on an independent workstation and reviewed. Source images are reviewed. FINDINGS: Carotid/Vascular Structures: There is a 3 vessel arch. Common carotid arteries bifurcate into internal and external carotid arteries without significant supa w limiting stenosis. Vertebral arteries are codominant. Internal carotid arteries and vertebral arteries are patent to the skull base. Cervical of [place]: Vertebral basilar system appears normal. Posterior cerebral vasculature is unrema rkable. Internal carotid arteries bifurcate normally into A1 and M1 segments. A2 segments are normal. The anterior communicating artery is patent. The right posterior communicating artery is patent. The left posterior communicating artery is patent. IMPRESSION: 1. No flow-limiting stenosis bilateral carotid bifurcations. 2. Normal [place] of [place] NASCET criteria was used in interpretation of this exam?
[2023-02-17] MEDS ORDERED: ASPIRIN 325 MG TAB PO STA (20:39)
[2023-02-17] MEDS ORDERED: TICAGRELOR 90 MG TAB PO STA (20:39)
[2023-02-17 22:27] LABS: Appearance,Urine Clear (Clear); Bilirubin,Urine Negative (Negative); Blood,Urine Negative (Negative); Color,Urine Light Yellow; Glucose,Urine (UA) Negative (Negative); Ketones,Urine Negative (Negative); Leukocyte Esterase,Urine Negative (Negative); Nitrite,Urine Negative (Negative); Protein,Urine Negative (Negative); Specific Gravity,Urine 1.027 (1.001-1.035); Urobilinogen,Urine <2.0 mg/dL (<2.0)
[2023-02-17] MEDS ORDERED: NALOXONE 0.4 MG/ML 1 ML VIAL IV PRN (22:58)
[2023-02-17] MEDS ORDERED: CYCLOBENZAPRINE 10 MG TAB PO PRN (23:07)
[2023-02-17] MEDS: SODIUM CHLORIDE 0.9% 1,000 ML IV SCH (23:26)
[2023-02-18] MEDS ORDERED: MORPHINE SULFATE 4 MG/ML SYRINGE IVP PRN (01:23)
[2023-02-18 03:56] LABS: Basophils % (A) 1 %; Eosinophils # (A) 0.2 k/uL (0-0.7); Eosinophils % (A) 3 %; HCT 46.8 % (39.0-53.0); HGB 16.5 gm/dL (13.0-17.5); Lymphocytes # (A) 2.4 k/uL (1.0-4.8); Lymphocytes % (A) 28 %; MCH 29.3 pg (25.0-35.0); MCHC 35.3 g/dL (31.0-37.0); MCV 83.1 fL (80.0-100.0); Mean Platelet Volume 7.4; Monocytes # (A) 0.6 k/uL (0-1.0); Monocytes % (A) 6 %; Neutrophils # (A) 5.1 k/uL (1.3-7.7); Neutrophils % (A) 61 %; Platelet Count 227 k/uL (150-450); RBC 5.63 m/uL (4.30-5.90); RDW 12.9 % (11.5-15.5); WBC 8.5 k/uL (3.8-10.6)
--- NOTE | 2023-02-18 04:24 | P.HPIM ---
History of Present Illness H&P Date: 02/18/23 Chief Complaint: confusion 57 year old male with hyperlipidemia , recent stroke patient was seen on the of this month (6 days ago ) diagnosed with Left thalamic stroke , MRI showed right cerebellar stroke , ROMINA showed no shunt no thrombus , he was discharged in stable condition on aspirin and plavix he was doing well at home, but suddenly around 4:30 on Saturday 02/17 started having acute confusion , he could not remember where he is , or why he is not at work, did not know the date , and could not remember anything about his recent stroke. family got alarmed and decided to bring him back for evaluation , no other acute new neurodeficits. patient denies any headache, nasuea , vomiting, abd pain , or new focal neuro deficits while on the medical floor , he suddenly reported left sided chest pain , vital signs remains stable during that , and pain resolves spontaneously after 15 min . however repeat EKG showed new onset lateral precordial leads t wave inversion , compared to his EKG from earlier when he was in the ED. initial trops negative , he denies any cardiac history then after this episode , he started complaining of right big toe pain and reddness , endorses a history of Gout. reporting sudden onset pain that just started before I saw him. patient denies tobacco smoking illicit drugs or alcohol , denies any history of CAD or blood clots review of systems Pertinent positives as noted in HPI. All other systems were reviewed and are negative on exam Constitutional: No acute distress, conversant, pleasant Eyes: Anicteric sclerae, moist conjunctiva, Pupils equal round reactive to light ENMT: NC/AT Oropharynx clear, no erythema, or exudates Neck: Supple, no masses, or JVD No carotid bruits No thyromegaly Lungs: Clear to auscultation Clear to percussion Normal respiratory effort, no accessory muscle use Cardiovascular: Heart regular in rate and rhythm, No murmurs, gallops, or rubs No peripheral edema Abdominal: Soft Nontender, no guarding, rebound or rigidity Abdomen moving with respiration Normoactive bowel sounds No hepatomegaly, No splenomegaly No palpable mass No abdominal wall hernia noted Skin: reddness and pain over the base of right big toe , tender to palpation , hot to the touch, no open wounds no drainage Extremities: No digital cyanosis No clubbing Pedal pulses intact and symmetrical Radial pulses intact and symmetrical No calf tenderness Psychiatric: Alert and oriented to person, place and time (confusion r esolved) Appropriate affect fair judgement Neuro Muscles Strength 5/5 in all 4 extremities Sensation to light touch grossly present throughout Cranial nerves II-XII grossly intact finger nose exam intact. Lymphatics: no palpable cervical or supraclavicular lymph nodes Past Medical History Past Medical History: GERD/Reflux, GI Bleed, Hyperlipidemia Additional Past Medical History / Comment(s): BLOOD IN STOOL, "low hemoglobin" History of Any Multi-Drug Resistant Organisms: None Reported Past Surgical History: Cholecystectomy, Orthopedic Surgery Additional Past Surgical History / Comment(s): BILAT KNEE ARTHROSCOPY. COLONOS COPY. EGD Additional Past Anesthesia/Blood Transfusion Reaction / Comment(s): WAS TOLD HE "CAME OUT OF ANESTHESIA FIGHTING AFTER ARTHROSCOPY" Past Psychological History: No Psychological Hx Reported Smoking Status: Never smoker Past Alcohol Use History: None Reported Past Drug Use History: None Reported - Past Family History Mother Family Medical History: CVA/TIA Medications and Allergies Home Medications Medication Instructions Recorded Confirmed Type Multivitamins, Thera [Multivitamin 1 tab PO DAILY 02/11/23 02/17/23 History (formulary)] Omeprazole 20 mg PO DAILY 02/11/23 02/17/23 History Acetaminophen Tab [Tylenol] 650 mg PO Q6HR PRN tab 02/15/23 02/17/23 Rx Aspirin 81 mg PO DAILY #30 tab 02/15/23 02/17/23 Rx Clopidogrel [Plavix] 75 mg PO DAILY #30 tab 02/15/23 02/17/23 Rx Cyclobenzaprine [Flexeril] 10 mg PO TID PRN #10 tab 02/15/23 02/17/23 Rx Rosuvastatin Calcium [Crestor] 40 mg PO DAILY #30 tab 02/15/23 02/17/23 Rx Allergies Allergy/AdvReac Type Severity Reaction Status Date / Time hydrocodone [From [place]] Allergy Rash/Hives Verified 02/17/23 20:28 Physical Exam Vitals: Vital Signs Temp Pulse Pulse Resp BP BP Pulse Ox 02/18/23 01:50 61 120/70 98 02/18/23 01:27 98.2 F 54 L 15 125/76 97 02/18/23 01:00 61 02/17/23 23:55 98.1 F 64 15 142/76 96 02/17/23 23:28 71 18 135/87 96 02/17/23 22:00 65 16 147/90 95 02/17/23 21:00 68 18 136/88 98 02/17/23 20:00 73 16 126/95 97 02/17/23 19:34 70 18 126/95 97 02/17/23 19:00 65 12 134/93 97 02/17/23 17:43 73 18 151/101 94 L Intake and Output 02/17/23 02/17/23 02/18/23 14:59 22:59 06:59 Other: Voiding Method Toilet Urinal Weight 108.862 kg 108.862 kg Results CBC & Chem 7: 02/18/23 03:21 02/17/23 17:55 Labs: Abnormal Lab Results - Last 24 Hours (Table) 02/17/23 02/17/23 Range/Units 17:55 17:55 RBC 6.09 H (4.30-5.90) m/uL Hgb 17.7 H (13.0-17.5) gm/dL Carbon Dioxide 20 L (22-30) mmol/L BUN 22 H (9-20) mg/dL AST 65 H (17-59) U/L ALT 110 H (4-49) U/L Thrombosis Risk Factor Assmnt - Choose All That Apply Any of the Below Risk Factors Present?: Yes Each Factor Represents 1 point: Age 41-60 years, Obesity (BMI >25) Other Risk Factors: No Other congenital or acquired thrombophilia - If yes, enter type in comment: No Thrombosis Risk Factor Assessment Total Risk Factor Score: 2 Thrombosis Risk Factor Assessment Level: Low Risk Assessment and Plan Assessment: 57 year old male with recent left thalamic and right cerebellar stroke , coming back with global amnesia , I discussed the case with ED doc and I accepted the admission for further neurologic evaluation based on telephone clerk telegraph office neurology recommendations. with anticipated length of stay < 2 midnights subacute left thalamic stroke and right cerebellar stroke repeat CT brain showed evolving left thalamic lacunar infarct CTA head and neck no major blood vessel obstruction neurology recommended discontinue plavix , and starting berlinta continue with aspirin and statin patient recently had full stroke workup including ROMINA, no major thrombus identified or shunt MRI pending reading report neurology evaluation PT / OT eval polycythemia hgb 17.7 consider OP follow up blood work unremarkable otherwise bun 22, Cr 0.99 Na 138 , K 4.4 WBC 9.3 slightly elevated liver enzymes , continue to trend , if continues to go up, consider holding or switching his statin meds AST 53 ALT 110 atypical chest pain trops negative, continue to trend continue statin EKG showed V4-V6 new T wave inversion continue with ASA and berlinta cardiology consult engine monitor monitor vital signs acute gout flareup right big toe patient declined prednisone will avoid NSAID for now agreed to try tylenol for now , as pain not that severe cold packs if pain continues , consider prednisone 50 mg po daily for 5 days full code DVT PPX mechanical
[2023-02-18] MEDS: ACETAMINOPHEN TAB 325 MG TAB PO PRN ×2 (04:29→10:59)
[2023-02-18] MEDS ORDERED: PANTOPRAZOLE 40 MG TABLET PO SCH (07:30)
--- NOTE | 2023-02-18 07:42 | MR ---
EXAMINATION TYPE: MR brain wo con DATE OF EXAM: 02/17/2023 11:00 PM COMPARISON: 02/13/2023 History: Evaluate for CVA FINDINGS: The ventricles, basal cisterns and sulci overlying the cerebral convexities are enlarged. There is evidence of mild periventricular white matter ischemic demyelination. Remote deep white matter insults are also noted. Diffusion-weighted imaging demonstrates evolution of left thalamic ischemic insult as well as evoluti on of right cerebellar infarct. There are new focal areas of abnormal diffusion involving the medial right cerebellum, the posterior temporal lobes, bilateral occipital lobes and right parietal occipita l watershed. Findings are highly suggestive of embolic process. There is no evidence for midline shift or mass effect. Acute intracranial hemorrhage or extra-axial collection is not evident. The paranasal sinuses and mastoid air cells are well-aerated. IMPRESSION: 1. Multiple new small focal areas of abnormal diffusion as well as evolution of the left thalamic and right cerebellar ischemic insults compatible with embolic process.
[2023-02-18 08:13] VITALS: PULSE 58; RESP 18
[2023-02-18] MEDS ORDERED: ATORVASTATIN 80 MG TAB PO SCH (09:00)
[2023-02-18] MEDS ORDERED: MULTIVITAMINS, THERA 1 EACH TAB PO SCH (09:00)
[2023-02-18] MEDS ORDERED: ASPIRIN 81 MG PO SCH (09:00)
[2023-02-18] MEDS ORDERED: TICAGRELOR 90 MG TAB PO SCH (09:00)
--- NOTE | 2023-02-18 09:22 | P.CRDCN ---
History of Present Illness History of present illness: This is Dr. García dictating a consult on this patient The patient was interviewed and examined IMPRESSION / ASSESSMENT: Recent thalamic stroke Recurrence of neurologic symptoms despite dual antiplatelet therapy and statins New abnormalities noted on brain MRI Normal cardiac evaluation Patient is wearing an event monitor, monitor strips awaited Twelve-lead EKG does not show any atrial fibrillation Normal blood pressure PLAN: Neurologic evaluation Continue rosuvastatin 40 mg by mouth daily Continue dual antiplatelet therapy which is being switched to Brilinta. Aspirin the continue Will review event monitor strips when available. We spoke to the stress lab and they will get me the event monitor strips From a cardiac standpoint the only issue is if he is having any atrial fi brillation or not which would then office to change treatment Our also recommend a hematology consultation since he is having recurrent embolic strokes High-sensitivity CRP, ESR HPI Patient presented yet again with worsening neurologic symptoms history the patient became acutely confused and he was unsure why he was not at work. He did not remember the date. He does not remember being hospitalized for stroke I spoke to the patient he really didn't remember any symptoms or why he was in the hospital. Twelve-lead EKG shows sinus mechanism normal NE incomplete right bundle branch block and T-wave inversions V3-V6 Biphasic T waves in V5 and V6 from his EKG yesterday CTA of the neck and brain does not show any occlusive disease MRI shows multiple new small focal abnormal diffusion abnormalities with evolution of the left thalamic and right cerebellar ischemic insults compatible with embolic process He had a T a few days back which did not show any intracardiac thrombus, no evidence of intracardiac shunt No abnormalities normal LV function ROS: No fever chills or rigors, no cough, phlegm or expectoration, no nausea, vomiting or diarrhea, no hematuria, dysuria, no musculoskeletal complaints, no strokes or seizures, no skin lesions. EXAMINATION: Patient awake but unable to give history, does not remember what happened Afebrile Pulse rate in the 60s Normal blood pressure Normal heart rates no murmurs or gallops no rubs Clear lungs no rhonchi no crackles REVIEW OF LABS, ECG & MEDICAL DATA Hemoglobin 16, normal white count Sodium 138, BUN 22 and creatinine 0.99 Normal troponins Past Medical History Past Medical History: GERD/Reflux, GI Bleed, Hyperlipidemia Additional Past Medical History / Comment(s): BLOOD IN STOOL, "low hemoglobin" History of Any Multi-Drug Resistant Organisms: None Reported Past Surgical History: Cholecystectomy, Orthopedic Surgery Additional Past Surgical History / Comment(s): BILAT KNEE ARTHROSCOPY. COLONOSCOPY. EGD Additional Past Anesthesia/Blood Transfusion Reaction / Comment(s): WAS TOLD HE "CAME OUT OF ANESTHESIA FIGHTING AFTER ARTHROSCOPY" Past Psychological History: No Psychological Hx Reported Smoking Status: Never smoker Past Alcohol Use History: None Reported Past Drug Use History: None Reported - Past Family History Mother Family Medical History: CVA/TIA Medications and Allergies Home Medications Medication Instructions Recorded Confirmed Type Multivitamins, Thera [Multivitamin 1 tab PO DAILY 02/11/23 02/17/23 History (formulary)] Omeprazole 20 mg PO DAILY 02/11/23 02/17/23 History Acetaminophen Tab [Tylenol] 650 mg PO Q6HR PRN tab 02/15/23 02/17/23 Rx Aspirin 81 mg PO DAILY #30 tab 02/15/23 02/17/23 Rx Clopidogrel [Plavix] 75 mg PO DAILY #30 tab 02/15/23 02/17/23 Rx Cyclobenzaprine [Flexeril] 10 mg PO TID PRN #10 tab 02/15/23 02/17/23 Rx Rosuvastatin Calcium [Crestor] 40 mg PO DAILY #30 tab 02/15/23 02/17/23 Rx Allergies Allergy/AdvReac Type Severity Reaction Status Date / Time hydrocodone [From [place]] Allergy Rash/Hives Verified 02/17/23 20:28 Physical Exam Vitals: Vital Signs Temp Pulse Pulse Resp BP BP Pulse Ox 02/18/23 07:00 97.5 F L 58 L 18 131/76 98 02/18/23 01:50 61 120/70 98 02/18/23 01:27 98.2 F 54 L 15 125/76 97 02/18/23 01:00 61 02/17/23 23:55 98.1 F 64 15 142/76 96 02/17/23 23:28 71 18 135/87 96 02/17/23 22:00 65 16 147/90 95 02/17/23 21:00 68 18 136/88 98 02/17/23 20:00 73 16 126/95 97 02/17/23 19:34 70 18 126/95 97 02/17/23 19:00 65 12 134/93 97 02/17/23 17:43 73 18 151/101 94 L Intake and Output 02/17/23 02/18/23 02/18/23 22:59 06:59 14:59 Other: Voiding Method Toilet Urinal # Voids 1 Weight 108.862 kg 108.862 kg Results 02/18/23 03:21 02/17/23 17:55 Cardiac Enzymes 02/17/23 02/17/23 02/18/23 Range/Units 17:55 17:55 03:21 AST 65 H (17-59) U/L Troponin I <0.012 <0.012 (0.000-0.034) ng/mL Coagulation 02/17/23 Range/Units 17:55 PT 10.1 (9.0-12.0) sec APTT 24.8 (22.0-30.0) sec CBC 02/17/23 02/18/23 Range/Units 17:55 03:21 WBC 9.3 8.5 (3.8-10.6) k/uL RBC 6.09 H 5.63 (4.30-5.90) m/uL Hgb 17.7 H 16.5 (13.0-17.5) gm/dL Hct 50.4 46.8 (39.0-53.0) % Plt Count 279 227 (150-450) k/uL Comprehensive Metabolic Panel 02/17/23 Range/Units 17:55 Sodium 138 (137-145) mmol/L Potassium 4.4 (3.5-5.1) mmol/L Chloride 105 (98-107) mmol/L Carbon Dioxide 20 L (22-30) mmol/L BUN 22 H (9-20) mg/dL Creatinine 0.99 (0.66-1.25) mg/dL Glucose 99 (74-99) mg/dL Calcium 9.6 (8.4-10.2) mg/dL AST 65 H (17-59) U/L ALT 110 H (4-49) U/L Alkaline Phosphatase 87 (38-126) U/L Total Protein 7.8 (6.3-8.2) g/dL Albumin 4.7 (3.5-5.0) g/dL Current Medications Generic Name Dose Route Start Last Admin Trade Name Freq PRN Reason Stop Dose Admin Acetaminophen 650 mg 02/17/23 23:07 02/18/23 04:29 Acetaminophen Tab 325 Mg Tab PO 650 mg Q6HR PRN Administration Fever and/ or Pain Aspirin 81 mg 02/18/23 09:00 02/18/23 08:32 Aspirin 81 Mg PO 81 mg DAILY PETRA Administration Atorvastatin Calcium 80 mg 02/18/23 09:00 02/18/23 08:32 Atorvastatin 80 Mg Tab PO 80 mg DAILY PETRA Administration Cyclobenzaprine HCl 10 mg 02/17/23 23:07 Cyclobenzaprine 10 Mg Tab PO TID PRN Muscle Spasm Sodium Chloride 1,000 mls @ 75 mls/hr 02/17/23 23:00 02/17/23 23:26 Saline 0.9% IV 75 mls/hr .[id number] PETRA Administration Morphine Sulfate 4 mg 02/18/23 01:23 Morphine Sulfate 4 Mg/Ml Syringe IVP Q6HR PRN Pain Multivitamins 1 each 02/18/23 09:00 02/18/23 08:32 Multivitamins, Thera 1 Each Tab PO 1 each DAILY PETRA Administration Naloxone HCl 0.2 mg 02/17/23 22:58 Naloxone 0.4 Mg/Ml 1 Ml Vial IV Q2M PRN Opioid Reversal Pantoprazole Sodium 40 mg 02/18/23 07:30 02/18/23 06:41 Pantoprazole 40 Mg Tablet PO 40 mg [id number] PETRA Administration Ticagrelor 90 mg 02/18/23 09:00 02/18/23 08:32 Ticagrelor 90 Mg Tab PO 90 mg BID PETRA Administration Intake and Output 02/17/23 02/18/23 02/18/23 22:59 06:59 14:59 Other: Voiding Method Toilet Urinal # Voids 1 Weight 108.862 kg 108.862 kg 02/18/23 03:21 02/17/23 17:55
[2023-02-18] MEDS ORDERED: ENOXAPARIN 40 MG/0.4 ML SYRINGE SQ SCH (10:45)
--- NOTE | 2023-02-18 10:46 | P.PN ---
Subjective Progress Note Date: 02/18/23 Hospital course: Patient is a very pleasant 57-year-old male with a past medical history of hyperlipidemia and recent diagnosis of a left pelvic ischemic stroke on 02/11/23. Patient presented to the hospital overnight on 02/17/23 secondary to alteration in mental status. Patient underwent full evaluation in the emergency department. EKG was completed showing normal sinus rhythm at 72 bpm with a right bundle-branch block and no significant T-wave or ST abnormalities upon personal review and interpretation. CT brain showing evolving left thalamus lacunar infarct with no new suspicious acute changes recommending follow-up MRI. CTA head and neck showing no flow limiting stenosis of bilateral carotid bifurcations, normal rosebud of [place]. MRI brain completed showing multiple new focal areas of abnormal diffusion as well as evolution of left thalmic and right cerebellar ischemic insults compatible with embolic process. Labs completed and reviewed. CBC showing elevated hemoglobin of 17.7. Coagulation profile normal findings. BMP unremarkable with the exception of elevated BUN of 22. Liver profile showing elevated AST of 65 and ALT of 110. Troponin negative at less than 0.012. Urinalysis negative for infection. Patient admitted under our services with consultation cardiology and neurology. Repeat troponin completed also less than 0.012. CRP elevated at 2.2. Physical exam: Vital signs reviewed and stable. General: Nontoxic, no distress and appears stated age. Derm: Skin warm and dry, normal coloration for ethnicity. Head: Atraumatic, normocephalic and symmetric. Eyes: EOMs intact, no lid lag, and anicteric sclera Mouth: no lip lesions, mucus membranes moist Cardiovascular: regular rate and rhythm with normal S1S2, no murmur, positive posterior tibial pulses bilaterally, and cap refill < 2 seconds. Lungs: Respirations even, regular, and unlabored on room air. Lungs CTA bilaterally, no rhonchi, no rales, no wheezing, and no accessory muscle usage. Abdominal: soft, nontender to palpation, no guarding, no appreciable organomegaly Ext: ROM intact. No gross muscle atrophy, no edema, no contractures Neuro: Speech clear, face symmetrical and CN II-XII grossly intact with no noted focal neuro deficits Psych: Alert and oriented to person, place, time, and situation. Appropriate and pleasant affect. Assessment and Plan of Care: Evolving Left thalmic and Right cerebellar ischemic insults Hyperlipidemia -Cardiology consulted for consideration of ROMINA. -Neurology consulted secondary to evolving left stomach and right cerebellar ischemic insults along with new focal areas of abnormal diffusion concerning for embolic process. -Hematology consulted for hypercoagulability workup -Plavix was discontinued and patient started on aspirin and Brillinta and was given a loading dose of Brillinta. -Neuro checks. -Fall precautions -Consult PT/OT Orders placed for hypercoagulable blood work including anti-thrombin to activity, anti-thrombin to antigen, cardiolipin ABS IgA, IgG, and IgM, factor V leading mutation, lupus anticoagulant, beta 2 glycoprotein, protein C activity, protein S activity, and a prothrombin G/A mutation. Polycythemia, resolved after IV fluid hydration likely secondary to dehydration. No further workup needed at this time. Slightly elevated liver enzymes -Will continue to monitor if patient continues to have further elevation may consider holding or switching statin. CODE STATUS: Full code DVT prophylaxis: Lovenox Discussed with: Pt and RN Anticipated discharge date: Clinical course to determine Anticipated discharge place: Home Patient was seen independently by Nurse Pracitioner. This document was prepared using [employer] dictation software. Please allow for errors in project management engineer, while rare they do occur. Harmeet Scott NP rendered care for this patient independently, reviewed the findings and plan as documented in the note above. I did not physically speak with or examine the patient on this date. Objective - Vital Signs Vital signs: Vital Signs Temp 97.5 F L 02/18/23 07:00 Pulse 58 L 02/18/23 07:00 Resp 18 02/18/23 07:00 BP 131/76 02/18/23 07:00 Pulse Ox 98 02/18/23 07:00 FiO2 Intake & Output 02/17/23 02/18/23 02/18/23 18:59 06:59 18:59 Weight 108.862 kg 108.862 kg Other: Voiding Method Toilet Urinal # Voids 1 - Labs CBC & Chem 7: 02/18/23 03:21 02/18/23 03:21 Labs: Abnormal Lab Results - Last 24 Hours (Table) 02/17/23 02/17/23 Range/Units 17:55 17:55 RBC 6.09 H (4.30-5.90) m/uL Hgb 17.7 H (13.0-17.5) gm/dL Carbon Dioxide 20 L (22-30) mmol/L BUN 22 H (9-20) mg/dL AST 65 H (17-59) U/L ALT 110 H (4-49) U/L
--- NOTE | 2023-02-18 11:59 | P.CNNES ---
History of Present Illness Consult date: 02/17/23 Requesting physician: Bindu Barnett Reason for Consult: TIA, recent stroke History of Present Illness: Patient is a 57-year-old male recently seen in hospital consultation for acute CVA involving the left thalamus and multiple areas involving the right cerebellar hemisphere. Patient was not taking any antiplatelet medication at home prior to that admission. Patient was discharged on dual antiplatelet medication with aspirin 81 mg and Plavix 30 mg. He was discharged on 02/15/2023. Patient was doing very well for couple days. Today at 3:34 PM, patient suddenly became confused, he did not know what day it was, he keeps on repeating "where are the kids". He was asking his family that he should be working although he is not. Family did not report any facial droop, slurred speech, any focal numbness tingling or problem with the vision. Family called the ambulance and he was brought to the hospital. As per EMS flow sheet when they arrive patient was sitting at the chair at the kitchen table. Patient mentioned that he does feel confused and he was alert and oriented 2-3. Patient does not have any facial droop, patient does not have any slurred speech. No arm drift. Patient did not complain of headache or blurred vision. He does have slight limp to his gait today. But blamed it on his gout being active. Patient denied any headache, dizziness, lightheadedness, difficulty breathing, nausea vomiting. Patient's vitals at the scene was blood pressure 150/88, pulse rate 76, respirations 16, saturation 98%. Blood glucose 103. Patient earlier did not remember the ambulance ride, and how he got to the hospital. However when I examined, he knew and remembers the EMS arriving and bringing him to the hospital. Patient sometimes changing his statement. Patient admits to foot hurting, but denies headache. He did have headache for 2 days, but as soon as the confusion occurred, the headache has resolved. Patient's family also mentioned that he has developed some new onset crescent in the right eye. He was seen by welder plastic, who felt was the effect of the stroke and is getting better. There was no bleed. Patient's daughter believes that his right side is still slightly weak and he sometimes stumbles outside and shuffles. Patient's workup performed on last admission as below: MRI of the brain revealed acute/subacute CVA in the left thalamus and right cerebellar hemisphere, correlate for embolic phenomenon. I personally reviewed MRI, agree with the findings. On my review, there is multiple areas of acute ischemia in the right cerebellar hemisphere. Also a suspicious tiny area in the right occipital region as well. Overall this is cardioembolic CVA. 2-D echo revealed normal left ventricular systolic function with EF 55-60%. No obvious regional wall motion abnormalities. Left atrial size is normal. Moderate right ventricle dilation. Transesophageal echocardiogram revealed normal left ventricular systolic function. No intracardiac thrombus. No evidence of shunting across the interatrial septum. Patient has been hooked up with 30 day event monitor rule out paroxysmal atrial fibrillation. Hemoglobin A1c is 5.4. CT angiography of the head and neck was reported as no significant diameter reduction to account for the patient's symptoms. No significant abnormalities. Fasting lipid panel with cholesterol 177, LDL 81, HDL 27 and triglycerides 343. Continue Lipitor 80 mg daily, which I agree. Patient was taking Crestor 10 mg at home. TSH is normal. EEG is normal. No epileptiform activity seen. Telemetry monitoring showing sinus rhythm, with sinus bradycardia, some PVCs and PACs. No other arrhythmia Review of Systems Constitutional: Denies chills, Denies fever Eyes: left loss of peripheral vision, denies blurred vision, denies pain Ears: bilateral: decreased hearing, deny: ear discharge Ears, nose, mouth and throat: Denies headache (Yesterday, but not today), Denies sore throat Cardiovascular: Denies chest pain, Denies shortness of breath Respiratory: Reports cough, Reports excessive sputum Gastrointestinal: Denies abdominal pain, Denies diarrhea, Denies nausea, Denies vomiting Genitourinary: Denies dysuria, Denies flank pain Musculoskeletal: Denies low back pain, Denies myalgias, Denies neck pain Integumentary: Denies pruritus, Denies rash Neurological: Reports as per HPI Psychiatric: Denies anxiety, Denies depression Endocrine: Reports fatigue, Denies weight change Hematologic/Lymphatic: Denies easy bleeding, Denies easy bruising Past Medical History Past Medical History: GERD/Reflux, GI Bleed, Hyperlipidemia Additional Past Medical History / Comment(s): BLOOD IN STOOL, "low hemoglobin" History of Any Multi-Drug Resistant Organisms: None Reported Past Surgical History: Cholecystectomy, Orthopedic Surgery Additional Past Surgical History / Comment(s): BILAT KNEE ARTHROSCOPY. COLONOSCOPY. EGD Additional Past Anesthesia/Blood Transfusion Reaction / Comment(s): WAS TOLD HE "CAME OUT OF ANESTHESIA FIGHTING AFTER ARTHROSCOPY" Past Psychological History: No Psychological Hx Reported Smoking Status: Never smoker Past Alcohol Use History: None Reported Past Drug Use History: None Reported - Past Family History Mother Family Medical History: CVA/TIA Medications and Allergies Home Medications Medication Instructions Recorded Confirmed Type Multivitamins, Thera [Multivitamin 1 tab PO DAILY 02/11/23 02/17/23 History (formulary)] Omeprazole 20 mg PO DAILY 02/11/23 02/17/23 History Acetaminophen Tab [Tylenol] 650 mg PO Q6HR PRN tab 02/15/23 02/17/23 Rx Aspirin 81 mg PO DAILY #30 tab 02/15/23 02/17/23 Rx Clopidogrel [Plavix] 75 mg PO DAILY #30 tab 02/15/23 02/17/23 Rx Cyclobenzaprine [Flexeril] 10 mg PO TID PRN #10 tab 02/15/23 02/17/23 Rx Rosuvastatin Calcium [Crestor] 40 mg PO DAILY #30 tab 02/15/23 02/17/23 Rx Allergies Allergy/AdvReac Type Severity Reaction Status Date / Time hydrocodone [From [place]] Allergy Rash/Hives Verified 02/17/23 20:28 Physical Examination - Vital Signs Vital Signs: Vital Signs Pulse Resp BP Pulse Ox 02/17/23 19:34 70 18 126/95 97 02/17/23 17:43 73 18 151/101 94 L Intake and Output 02/17/23 02/17/23 02/17/23 06:59 14:59 22:59 Other: Weight 108.862 kg Patient is a middle aged male, in no acute distress. Patient is alert awake oriented to time place and person. Patient knows it is January 2023 and that he is in [facility] and name of the current president. Speech and language functions are normal. Patient can name and repeat very well. No aphasia or dysarthria. Attention, concentration and fund of knowledge is adequate. There is no right left confusion. Patient was able to understand complex tasks. On cranial nerve examination, pupils are equal, round and reacting to light, visual linda are full on confrontation, with no neglect on double simultaneous stimulation. Extraocular muscles are intact with no nystagmus. Face is symmetric, tongue protrudes to the midline. Palatal elevation and sensation normal, hearing and shoulder shrug normal, facial sensation normal. On muscle strength testing, there is mild right pronation, no drift. The strength is normal in arms and legs distally and proximally except right legal secretary which is 5-. Deep tendon reflexes are symmetric 1 to 1+ in the arms and legs and planters are downgoing bilaterally. Sensory to touch is equal with no neglect on double simultaneous stimulation. Cerebellar function showed no ataxia for [id number] testing. No dysdiadochokinesia. No ataxia for [id number] testing on either side. Tone and bulk of muscles normal. Gait deferred.. On general examination, there is no carotid bruit or murmur, S1-S2 audible. Chest is clear on consultation. Abdomen is soft nontender. No organomegaly, bowel sounds present. Peripheral pulses are present. No edema. Results - Laboratory Findings CBC and BMP: 02/18/23 03:21 02/17/23 17:55 Abnormal Lab Findings: Abnormal Labs 02/17/23 02/17/23 17:55 17:55 RBC 6.09 H Hgb 17.7 H Carbon Dioxide 20 L BUN 22 H AST 65 H ALT 110 H Assessment and Plan Assessment: * Probable transient global amnesia. Rule out CVA/TIA. Current NIH stroke scale is 0. Patient not a candidate for TPA due to recent CVA, and low NIH stroke scale. * Recent acute ischemic stroke multifocal involving the left thalamus and multiple small areas in the right cerebellar hemisphere, suggestive of embolic stroke. Cardiac workup negative. [place] to be probable cryptogenic stroke. * Hypertension * Hyperlipidemia Plan: * Patient will undergo stat MRI of the brain to evaluate for an acute stroke. * CTA of head and neck revealed no flow-limiting stenosis bilateral carotid bifurcation. Normal [place]. * Start Brilinta 90 mg twice a day, as patient has failed Plavix. Contine Aspirin 81 mg daily. Patient does not remember if he took his Plavix this morning or not, therefore after discussing with the family, we will start Brilinta in the morning, without loading dose. * Further management based upon MRI results. * Patient had undergone event monitor placement before discharge. Patient may need interrogation of the event monitor to rule out paroxysmal atrial fibrillation. * Patient's family are considering transfer to another facility, like [facility]. The family agreed to perform test as above, until the bed is availa ble in [facility]. * Patient may need hypercoagulable workup. * Neurology will follow. Discussed with ED staff as well. Time with Patient: Greater than 30 (Spent over 70 minutes in evaluating, coordinating care and preparing the note, and reviewing records.)
[2023-02-18] MEDS: SODIUM CHLORIDE 0.9% 1,000 ML IV SCH (12:41)
[2023-02-18 13:31] LABS: African American GFR (CKD) >90 (>60 ml/min/1.73 sqM); Anion Gap 8 mmol/L; Blood Urea Nitrogen 19 mg/dL (9-20); Calcium 9.1 mg/dL (8.4-10.2); Carbon Dioxide 24 mmol/L (22-30); Chloride 105 mmol/L (98-107); Glucose 101 mg/dL (74-99); Non-African American GFR(CKD) 81 (>60 ml/min/1.73 sqM); Potassium 3.8 mmol/L (3.5-5.1); Sodium 137 mmol/L (137-145)
--- NOTE | 2023-02-18 15:22 | CA ---
Transthoracic Echo Report Name: Juan C Arvizu Age: 57 Gender: M : 1965 Exam Date: 02/18/2023 10:00 Exam Location: [place] [facility] Ht (in): 65 Wt (lb): 240 Ordering Physician: Velasquez García MD ([id number]) Attending/Referring Phys: Regulatory Affairs Assistant Gabriella Barraza RDCS Procedure CPT: Indications: lv thrombus Cardiac Hx: Technical Quality: Fair Contrast 1: Total Dose (mL): Contrast 2: Total Dose (mL): MEASUREMENTS (Male / Female) Normal Values 2D ECHO LV Diastolic Diameter PLAX 3.9 cm 4.2 - 5.9 / 3.9 - 5.3 cm LV Systolic Diameter PLAX 2.8 cm IVS Diastolic Thickness 1.3 cm 0.6 - 1.0 / 0.6 - 0.9 cm LVPW Diastolic Thickness 1.3 cm 0.6 - 1.0 / 0.6 - 0.9 cm LV Relative Wall Thickness 0.7 FINDINGS Left Ventricle Mildly increased septal wall thickness. Normal left ventricular systolic function with no obvious regional wall motion abnormalities. Left ventricular ejection fraction is estimated at 55-60 %. No obvious left ventricular thrombus. Right Ventricle Right Atrium Left Atrium Mitral Valve Aortic Valve Tricuspid Valve Pulmonic Valve Pericardium No pericardial effusion. Aorta CONCLUSIONS Normal LV size and systolic function No intracardiac masses Previewed by: Dr. Velasquez García MD (Electronically Signed) Final Date: 18 February 2023 15:21
--- NOTE | 2023-02-18 15:32 | P.CONS ---
History of Present Illness - Reason for Consult Consult date: 02/18/23 hypercoaguability, recurrent stroke Requesting physician: [place] - Chief Complaint confusion - History of Present Illness Mr. Arvizu is confused male we have been asked to see because of recurrent stroke. Pt was diagnosed with acute CVA involving the left thalamus and multiple areas involving the right cerebellar hemisphere last week, he had full work up-ROMINA neg, CT neck had no abnormal findings, he is pending scheduling a sleep study. He was discharged on asa and plavix. He was home for about 6 days when his family found him to be very confused, he did not know where he was, could not remember being in the hospital last week, no unilateral neurological deficits were noted, pt had no other symptoms to report. When seen pt is not able to answer questions about recent events, he knows his address and his children's names. He has a PMH of hyperlipidemia, gout, he does snore, pending sleep study for suspected apnea, no personal or family hx of bleeding or clotting disorders. CRI brain did show mult new areas of abnormal diffusion, evolution of prev rt cerebellar and lt thalamus insults. CTA neck, no abnormal findings. Pt smoked only briefly when he was young, quit when he was 19 yo. No other acute physical c/o. Review of Systems family at bedside reports recent Hx, remote Hx is intact ROS unobtainable: due to mental status Past Medical History Past Medical History: GERD/Reflux, GI Bleed, Hyperlipidemia Additional Past Medical History / Comment(s): BLOOD IN STOOL, "low hemoglobin" History of Any Multi-Drug Resistant Organisms: None Reported Past Surgical History: Cholecystectomy, Orthopedic Surgery Additional Past Surgical History / Comment(s): BILAT KNEE ARTHROSCOPY. COLONOSCOPY. EGD Additional Past Anesthesia/Blood Transfusion Reaction / Comm: WAS TOLD HE "CAME OUT OF ANESTHESIA FIGHTING AFTER ARTHROSCOPY" Past Psychological History: No Psychological Hx Reported Smoking Status: Never smoker Past Alcohol Use History: None Reported Past Drug Use History: None Reported - Past Family History Mother Family Medical History: CVA/TIA Medications and Allergies Home Medications Medication Instructions Recorded Confirmed Type Multivitamins, Thera [Multivitamin 1 tab PO DAILY 02/11/23 02/17/23 History (formulary)] Omeprazole 20 mg PO DAILY 02/11/23 02/17/23 History Acetaminophen Tab [Tylenol] 650 mg PO Q6HR PRN tab 02/15/23 02/17/23 Rx Aspirin 81 mg PO DAILY #30 tab 02/15/23 02/17/23 Rx Clopidogrel [Plavix] 75 mg PO DAILY #30 tab 02/15/23 02/17/23 Rx Cyclobenzaprine [Flexeril] 10 mg PO TID PRN #10 tab 02/15/23 02/17/23 Rx Rosuvastatin Calcium [Crestor] 40 mg PO DAILY #30 tab 02/15/23 02/17/23 Rx Allergies Allergy/AdvReac Type Severity Reaction Status Date / Time hydrocodone [From [place]] Allergy Rash/Hives Verified 02/17/23 20:28 Physical Exam Vitals: Vital Signs Temp Pulse Pulse Resp BP BP Pulse Ox 02/18/23 08:00 58 L 18 02/18/23 07:00 97.5 F L 58 L 18 131/76 98 02/18/23 01:50 61 120/70 98 02/18/23 01:27 98.2 F 54 L 15 125/76 97 02/18/23 01:00 61 02/17/23 23:55 98.1 F 64 15 142/76 96 02/17/23 23:28 71 18 135/87 96 02/17/23 22:00 65 16 147/90 95 02/17/23 21:00 68 18 136/88 98 02/17/23 20:00 73 16 126/95 97 02/17/23 19:34 70 18 126/95 97 02/17/23 19:00 65 12 134/93 97 02/17/23 17:43 73 18 151/101 94 L Intake and Output 02/17/23 02/18/23 02/18/23 22:59 06:59 14:59 Other: Voiding Method Toilet Toilet Urinal Urinal # Voids 1 Weight 108.862 kg 108.862 kg - Constitutional General appearance: cooperative, no acute distress, obese - EENT Eyes: anicteric sclerae, EOMI ENT: hearing grossly normal - Neck Neck: no lymphadenopathy - Respiratory Respiratory: bilateral: CTA - Cardiovascular Rhythm: regular Heart sounds: normal: S1, S2 Abnormal Heart Sounds: no systolic murmur, no diastolic murmur, no rub, no S3 Gallop, no S4 Gallop, no click, no other leg Peripheral Edema: bilateral: None - Gastrointestinal General gastrointestinal: no absent bowel sounds, no decreased bowel sounds, no distended, no hepatomegaly, no hyperactive bowel sounds, normal bowel sounds, no organomegaly, no rigid, no scaphoid, soft, no splenomegaly, no tenderness, no u mbilical hernia, no ventral hernia - Integumentary Integumentary: normal - Neurologic Neurologic: CNII-XII intact - Musculoskeletal Musculoskeletal: strength equal bilaterally - Psychiatric Alert, oriented to self, confused on place and time, flat affect Results CBC & Chem 7: 02/18/23 03:21 02/18/23 03:21 Labs: Abnormal Lab Results - Last 24 Hours (Table) 02/17/23 02/17/23 02/18/23 Range/Units 17:55 17:55 09:31 RBC 6.09 H (4.30-5.90) m/uL Hgb 17.7 H (13.0-17.5) gm/dL Carbon Dioxide 20 L (22-30) mmol/L BUN 22 H (9-20) mg/dL AST 65 H (17-59) U/L ALT 110 H (4-49) U/L C-Reactive Protein 2.2 H (<1.0) mg/dL Comments: CT neck report reviewed CT Scan - head: report reviewed MRI - head: report reviewed Assessment and Plan (1) Cerebrovascular accident (CVA) Current Visit: Yes Status: Acute Priority: High Code(s): I63.9 - CEREBRAL INFARCTION, UNSPECIFIED SNOMED Code(s): 868898268 Plan: CVA -1st instance was last week -Pt worked up and sent home on asa, palvix -returns with severe confusion, MRI suggesting evolution of prev infarcts and new -Neurology has assessed and is treating pt, meds have been changed -Concerns for hypercoaguable state in young, evolving stroke pt. ROMINA was just done, neg for PFO or thrombus, CT neck no significant atherosclerosis, stenosis. Hypercoag work up, antiphospholipid ab, and polycythemia work up ordered. -Hem recommendations to follow, based on work up -Pt family encouraged to keep follow up appts and to have sleep study Attests: I have seen and examined pt, performed H&P, developed impression and plan of care. Discussed with dictator. Agree with documentation, dictated as a scribe.
--- NOTE | 2023-02-18 15:47 | P.PN ---
Subjective Progress Note Date: 02/18/23 Hospital course: Patient is a very pleasant 57-year-old male with a past medical history of hyperlipidemia and recent diagnosis of a left pelvic ischemic stroke on 02/11/23. Patient presented to the hospital overnight on 02/17/23 secondary to alteration in mental status. Patient underwent full evaluation in the emergency department. EKG was completed showing normal sinus rhythm at 72 bpm with a right bundle-branch block and no significant T-wave or ST abnormalities upon personal review and interpretation. CT brain showing evolving left thalamus lacunar infarct with no new suspicious acute changes recommending follow-up MRI. CTA head and neck showing no flow limiting stenosis of bilateral carotid bifurcations, normal [place]. MRI brain completed showing multiple new focal areas of abnormal diffusion as well as evolution of left thalmic and right cerebellar ischemic insults compatible with embolic process. Labs completed and reviewed. CBC showing elevated hemoglobin of 17.7. Coagulation profile normal findings. BMP unremarkable with the exception of elevated BUN of 22. Liver profile showing elevated AST of 65 and ALT of 110. Troponin negative at less than 0.012. Urinalysis negative for infection. Patient admitted under our services with consultation cardiology and neurology. Repeat troponin completed also less than 0.012. CRP elevated at 2.2. Physical exam: Vital signs reviewed and stable. General: Nontoxic, no distress and appears stated age. Derm: Skin warm and dry, normal coloration for ethnicity. Head: Atraumatic, normocephalic and symmetric. Eyes: EOMs intact, no lid lag, and anicteric sclera Mouth: no lip lesions, mucus membranes moist Cardiovascular: regular rate and rhythm with normal S1S2, no murmur, positive posterior tibial pulses bilaterally, and cap refill < 2 seconds. Lungs: Respirations even, regular, and unlabored on room air. Lungs CTA bilaterally, no rhonchi, no rales, no wheezing, and no accessory muscle usage. Abdominal: soft, nontender to palpation, no guarding, no appreciable organomegaly Ext: ROM intact. No gross muscle atrophy, no edema, no contractures Neuro: Speech clear, face symmetrical and CN II-XII grossly intact with no noted focal neuro deficits Psych: Alert and oriented to person, place, time, and situation. Appropriate and pleasant affect. Assessment and Plan of Care: Evolving Left thalmic and Right cerebellar ischemic insults Hyperlipidemia -Cardiology consulted for evaluation of event monitor -ROMINA completed 02/15/23 was negative for PFO -Neurology consulted secondary to evolving left stomach and right cerebellar ischemic insults along with new focal areas of abnormal diffusion concerning for embolic process. -Hematology consulted for hypercoagulability workup -Plavix was discontinued and patient started on aspirin and Brillinta and was given a loading dose of Brillinta. -Neuro checks. -Fall precautions -Consult PT/OT Orders placed for hypercoagulable blood work including anti-thrombin to activity, anti-thrombin to antigen, cardiolipin ABS IgA, IgG, and IgM, factor V leading mutation, lupus anticoagulant, beta 2 glycoprotein, protein C activity, protein S activity, and a prothrombin G/A mutation. Polycythemia, resolved after IV fluid hydration likely secondary to dehydration. No further workup needed at this time. Slightly elevated liver enzymes -Will continue to monitor if patient continues to have further elevation may consider holding or switching statin. CODE STATUS: Full code DVT prophylaxis: Lovenox Discussed with: Pt and RN Anticipated discharge date: Clinical course to determine Anticipated discharge place: Home Patient was seen independently by Nurse Pracitioner. This document was prepared using [employer] dictation software. Please allow for errors in linux system administrator, while rare they do occur. Objective - Vital Signs Vital signs: Vital Signs Temp 97.5 F L 02/18/23 07:00 Pulse 58 L 02/18/23 14:00 Resp 18 02/18/23 14:00 BP 131/76 02/18/23 07:00 Pulse Ox 98 02/18/23 07:00 FiO2 Intake & Output 02/17/23 02/18/23 02/18/23 18:59 06:59 18:59 Weight 108.862 kg 108.862 kg Other: Voiding Method Toilet Toilet Urinal Urinal # Voids 1 - Labs CBC & Chem 7: 02/18/23 03:21 02/18/23 03:21 Labs: Abnormal Lab Results - Last 24 Hours (Table) 02/17/23 02/17/23 02/18/23 Range/Units 17:55 17:55 03:21 RBC 6.09 H (4.30-5.90) m/uL Hgb 17.7 H (13.0-17.5) gm/dL Carbon Dioxide 20 L (22-30) mmol/L BUN 22 H (9-20) mg/dL Glucose 101 H (74-99) mg/dL AST 65 H (17-59) U/L ALT 110 H (4-49) U/L C-Reactive Protein (<1.0) mg/dL 02/18/23 Range/Units 09:31 RBC (4.30-5.90) m/uL Hgb (13.0-17.5) gm/dL Carbon Dioxide (22-30) mmol/L BUN (9-20) mg/dL Glucose (74-99) mg/dL AST (17-59) U/L ALT (4-49) U/L C-Reactive Protein 2.2 H (<1.0) mg/dL
--- NOTE | 2023-02-18 15:59 | XR ---
EXAMINATION TYPE: XR chest 1V portable DATE OF EXAM: 02/18/2023 3:52 PM COMPARISON: Chest radiographs from 02/17/2023 TECHNIQUE: XR chest 1V portable Frontal view of the chest. CLINICAL INDICATION:Male, 57 years old with history of increased shortness of breath; FINDINGS: Lungs/Pleura: There is no evidence of pleural effusion, focal consolidation, or pneumothorax. Pulmonary vascularity: Unremarkable. Heart/mediastinum: Cardiomediastinal silhouette is unremarkable. Musculoskeletal: No acute osseous pathology. IMPRESSION: No acute cardiopulmonary disease/process.
[2023-02-18 16:26] LABS: Cardiolipin IgA Antibody <2.0 U/mL
[2023-02-18 16:47] VITALS: BP 115/71; TEMP 97.1
[2023-02-18 18:15] LABS: Chol/HDL Ratio 3.65 Ratio; LDL Cholesterol,Calculated 35.6 mg/dL (0.0-131.0)
[2023-02-18 19:02] LABS: Cardiolipin Ab IgG Interp Negative (Negative); Cardiolipin Ab IgM Interp Negative (Negative); Cardiolipin IgM Antibody 3.1 U/mL
[2023-02-19 09:32] LABS: APTT 47 Sec(s) (<43); APTT 1:1 Mix 38 Sec(s) (<43); Dilute Russell Viper Venom 42 Sec(s) (<44)
[2023-02-19 11:35] LABS: Protein C (Activity) 85 % (71-138)
[2023-02-19 14:22] LABS: Prothrombin 20210A Mutation Negative
--- NOTE | 2023-02-20 08:40 | P.DS ---
Providers Date of admission: 02/18/23 09:01 Expected date of discharge: 02/20/23 Attending physician: Kandi Moe MD Consults: 02/17/23 21:22 Consult Physician Urgent Consulting Provider: [place] Consult Reason/Comments: tia, recent stroke Do you want consulting provider notified?: Already Contacted 02/18/23 04:08 Consult Physician Routine Consulting Provider: Ganesh Jimenez Consult Reason/Comments: new onset chest pain with EKG lateral leads t wave inversion Do you want consulting provider notified?: Yes, Notify in am 02/18/23 08:13 Consult Physician Routine Consulting Provider: Augustin Cavazos Consult Reason/Comments: hypercoagulability, recurrent stroke Do you want consulting provider notified?: Yes Primary care physician: [facility] Course: Transfer Diagnosis: Evolving Left thalmic and Right cerebellar ischemic insults. ROMINA completed 02/15/23 was negative for PFO. Event monitor reviewed showing no signs of atrial fibrillation. Patient previously on aspirin and Plavix this was discontinued and patient was placed on aspirin and Brilinta. Hypercoagulable blood workup was drawn including anti-thrombin to activity, anti-thrombin to antigen, cardiolipin ABS IgA, IgG, and IgM, factor V leading mutation, lupus anticoagulant, beta 2 glycoprotein, protein C activity, protein S activity, and a prothrombin G/A mutation. Patient was transferred prior to these results. Hyperlipidemia Polycythemia, resolved after IV fluid hydration likely secondary to dehydration. No further workup needed at this time. Slightly elevated liver enzymes, recommend continued monitoring and if patient continues to have further elevation may consider holding or switching statin. 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 Patient presented to the hospital overnight on 02/17/23 secondary to alteration in mental status. Patient underwent full evaluation in the emergency department. EKG was completed showing normal sinus rhythm at 72 bpm with a right bundle-branch block and no significant T-wave or ST abnormalities upon personal review and interpretation. CT brain showing evolving left thalamus lacunar infarct with no new suspicious acute changes recommending follow-up MRI. CTA head and neck showing no flow limiting stenosis of bilateral carotid bifurcations, normal [place]. MRI brain completed showing multiple new focal areas of abnormal diffusion as well as evolution of left thalmic and right cerebellar ischemic insults compatible with embolic process. Labs completed and reviewed. CBC showing elevated hemoglobin of 17.7. Coagulation profile normal findings. BMP unremarkable with the exception of elevated BUN of 22. Liver profile showing elevated AST of 65 and ALT of 110. Troponin negative at less than 0.012. Urinalysis negative for infection. Patient admitted under our services with consultation cardiology and neurology. Repeat troponin completed also less than 0.012. CRP elevated at 2.2. Orders were placed for hypercoagulable blood workup and labs were drawn. Family discussed case with neurologist and requesting transfer to another facility. Patient was accepted to [facility] under Dr. Gerson Nix. Called and discussed case with Dr. Nikunj Varghese and confirmed patient was accepted for transfer to [facility] and once bed was available patient was transferred on the evening of 02/18/23 Patient was transferred to [facility] under Dr. Gerson Nix overnight on the night of 02/18/23 Patient was seen independently by Nurse Practitioner. This document was prepared using [employer] dictation software. Please allow for errors in project specialist while rare they do occur. Harmeet Scott NP rendered care for this patient independently, reviewed the findings and plan as documented in the note above. I did not physically speak with or examine the patient on this date. Plan - Discharge Summary Discharge Rx Participant: Yes New Discharge Prescriptions: No Action Omeprazole 20 mg PO DAILY Aspirin 81 mg PO DAILY #30 tab Cyclobenzaprine [Flexeril] 10 mg PO TID PRN #10 tab PRN Reason: Muscle Spasm Acetaminophen Tab [Tylenol] 650 mg PO Q6HR PRN tab PRN Reason: Fever And/ Or Pain Multivitamins, Thera [Multivitamin (formulary)] 1 tab PO DAILY Rosuvastatin Calcium [Crestor] 40 mg PO DAILY #30 tab Clopidogrel [Plavix] 75 mg PO DAILY #30 tab Discharge Medication List Multivitamins, Thera [Multivitamin (formulary)] 1 tab PO DAILY 02/11/23 [History] Omeprazole 20 mg PO DAILY 02/11/23 [History] Acetaminophen Tab [Tylenol] 650 mg PO Q6HR PRN tab 02/15/23 [Rx] Aspirin 81 mg PO DAILY #30 tab 02/15/23 [Rx] Clopidogrel [Plavix] 75 mg PO DAILY #30 tab 02/15/23 [Rx] Cyclobenzaprine [Flexeril] 10 mg PO TID PRN #10 tab 02/15/23 [Rx] Rosuvastatin Calcium [Crestor] 40 mg PO DAILY #30 tab 02/15/23 [Rx] Follow up Appointment(s)/Referral(s): Gaetano Borges DO [Primary Care Provider] - 1-2 days Patient Instructions/Handouts: Ischemic Stroke (GEN) Discharge Disposition: OTHER INSTITUTION NOT DEFINED
== END 2023-02-18 21:34 | disposition short-term general hospital (02) | DRG 66 ==
LOC: EC 17:36 → 6NMEDSUR 22:58 → OBSVTOIN 02-18 09:01 → 3SCARD 02-18 13:21
PROVIDERS: ADMIT Internal Medicine; ATTEND Internal Medicine
DX: I63.441 Cerebral infarction due to embolism of right cerebellar artery (principal); D75.1 Secondary polycythemia; R29.701 NIHSS score 1; E78.5 Hyperlipidemia, unspecified; E86.0 Dehydration; K21.9 Gastro-esophageal reflux disease without esophagitis; I48.0 Paroxysmal atrial fibrillation; R94.5 Abnormal results of liver function studies; Z87.19 Personal history of other diseases of the digestive system; M10.9 Gout, unspecified; F17.210 Nicotine dependence, cigarettes, uncomplicated; Z79.82 Long term (current) use of aspirin; Z79.899 Other long term (current) drug therapy; G45.4 Transient global amnesia; I10 Essential (primary) hypertension; I45.10 Unspecified right bundle-branch block; Z79.02 Long term (current) use of antithrombotics/antiplatelets; Z88.5 Allergy status to narcotic agent
CPT/HCPCS: 36415; 70450; 70496; 70498; 70551; 71045; 71046; 80048; 80053; 80061; 81003; 81240; 81241; 82550; 82668; 84484; 85025; 85303; 85306; 85379; 85610; 85613; 85652; 85730; 85732; 86140; 86147; 87635; 93005; 93308; 96360; 99291

== ENCOUNTER 2023-04-07 19:47 | Outpatient (CLI) | payer BC ==
--- NOTE | 2023-04-08 18:24 | P.PCN ---
Description of Procedure: POLYSOMNOGRAPHY REPORT PROCEDURE(S)/DATE(S): Polysomnography 04/07/2023 CLINICAL: Patient has been seen in the sleep center for evaluation of obstructive sleep apnea-hypopnea syndrome. Please see my consultation. Sleep study has been done for evaluation of patient breathing during the sleep. PROCEDURE: The standard montage for clinical polysomnography included the electroencephalogram, the electrooculogram, the mentalis surface electromyography and Lead II cardiography. The respiratory battery consisted of measurements of nasal/buccal air flow, pressure transducer measurements from nose, thoracic and/or abdominal effort and intercostal surface electromyography. Video monitoring has been done to check for any parasomnia events. Nocturnal oxyhemoglobin saturations were obtained by finger oximetry. Step-mack titration with positive airway pressure was utilized to control the respiratory events, if necessary. RESULTS: During the diagnostic sleep study sleep efficiency was extremely short 63.5 %. Latency to sleep onset was prolonged to 39.0 min. Sleep architecture showed stage NI was significantly increased to 23.3 %, Delta sleep was practically absent 0.9 %, REM sleep was significantly decreased to 15.2 %. Respiratory channel showed 0 obstructive apneas, 2 mixed apneas, 0 central apneas, 85 hypopneas with lowest oxygen level 70 %. Total apnea hypopnea index was 19.6. Heart rate was in the range between 62 and 70, average 66. EMG showed significant periodic limb movements. IMPRESSIONS: 1. Moderate obstructive sleep apnea hypopnea syndrome. 2. No significant periodic limb movements have been documented. Please see other impressions from consultation PLAN: 1. The patient will have AutoPAP treatment for correction of respiratory abnormalities during the sleep. 2. Losing weight program. 3. Sleep hygiene with regular time in bed for at least 7-1/2 hours. 4. No driving if feeling sleepiness. 5. I will see patient for follow-up visit to early clinical response on treatment, compliance with treatment and make any necessary adjustments related to mask fitting, pressure, and humidification. Thank you very much for allowing me to participate in the management of your patient. Sincerely, Yoan Lew MD, PhD, FAASM. Diplomat of [place] [employer], Sleep Medicine Board by [place] [employer] Rotary Drill Operator Helper [facility] [place]
== END 2023-04-08 05:45 | disposition home or self-care (01) ==
LOC: 3 N SLEEP 19:47
PROVIDERS: ATTEND Internal Medicine
DX: G47.33 Obstructive sleep apnea (adult) (pediatric) (principal); Z88.5 Allergy status to narcotic agent
CPT/HCPCS: 95810

== ENCOUNTER → 2023-07-01 | Outpatient (CLI) | payer BC ==
--- NOTE | 2023-07-01 11:53 | P.PN ---
Subjective DATE: 07/01/2023 FOLLOW UP VISIT. Patient with obstructive sleep apnea hypopnea syndrome return to sleep center for follow-up visit. Recently patient had sleep study which documented obstructive sleep apnea hypopnea syndrome. Patient was initiated on PAP therapy and today is first visit after treatment was started. Patient was able to use PAP equipment every night for the whole night. The patient does not have significant problems with the mask, PAP pressure and humidification. [place] sleepiness scale is increased to 12, patient feels more refreshed while using CPAP equipment. [place] sleepiness scale before treatment was 14.. I checked information from PAP unit. PAP unit pressure 5-14, average 11.8 cm H2O. Usage is 100% and 93 % for more then 4 hours, average 7.5 hours per night. Leak is increased to 34.3 l/m, ege of the mask is broken. Apnea Hypopnea Index is 1.2, which is normal. MEDICATIONS:1. Rosuvastatin 20 mg once a day 2. Aspirin 81 mg once a day 3. Cilostazol 100 mg twice a day During physical exam: GENERAL: A pleasant patient without any distress. VITAL SIGNS: BP 127/80, HR 57, RR 16, weight 245.8, temperature 98.2, oxygen saturation at room air 97%. HEENT: PERRLA, EOMI.low position of soft palate, Mallapati 4 . NECK: Supple. No JVD. LUNGS: Clear to percussion and to auscultation. Good air exchange. No wheezing or rhonchi. HEART: S1, S2 regular. ABDOMEN: Soft and nontender. Slightly obese EXTREMITIES: No clubbing or cyanosis. SLICING MACHINE OPERATOR/TENDER: Awake, alert, and oriented x3. No focal deficit. Impressions: 1. Obstructive sleep apnea-hypopnea syndrome. Patient demonstrated great compliance with treatment, benefiting from treatment. 2. Obesity, patient increased his weight on 15 pounds comparing with previous visit. 3. History of stroke 2 several months ago. 4. Hyperlipidemia. 5. History of sinusitis. 6. History of headaches. 7. Status post cholecystectomy. 8. Status post bilateral knee surgery. Plan: 1. Continue using PAP equipment every night for the whole night. 2. To change air filter at least 1-2 times per month. 3. PAP unit should stay lower then position of the head. 4. Advised patient to remove all remaining water from humidifier canister daily and make it dry after each usage. Refill canister with fresh distilled water before each usage. 5. Sleep hygiene with regular time in bed for at least 8 hours. 6. Precautions related to driving. No driving if feel any sleepiness. 7. I will maintain prescription for PAP supplies including mask, tube, filters. 8. Follow up visit in 6 months or earlier if patient has any problems. 9. Watching and losing weight. Thank you very much for allowing me to participate in the management of your patient. Yoan Lew MD, PhD, FAASM. Diplomat of [place] [employer], Sleep Medicine Board by [place] [employer] Dairy Clerk of [facility] [place]
== END ==
LOC: 3 N SLEEP 11:00
PROVIDERS: ATTEND Internal Medicine
DX: G47.33 Obstructive sleep apnea (adult) (pediatric) (principal); E66.9 Obesity, unspecified; E78.5 Hyperlipidemia, unspecified; J32.9 Chronic sinusitis, unspecified; Z86.69 Personal history of other diseases of the nervous system and sense organs; Z90.49 Acquired absence of other specified parts of digestive tract; Z98.890 Other specified postprocedural states; Z99.89 Dependence on other enabling machines and devices; Z86.73 Personal history of transient ischemic attack (TIA), and cerebral infarction without residual deficits; Z88.5 Allergy status to narcotic agent; Z79.82 Long term (current) use of aspirin
CPT/HCPCS: 99212

== ENCOUNTER → 2024-01-06 | Outpatient (CLI) | payer BC ==
[2024-01-06 11:38] VITALS: BP 119/69; PULSE 57; RESP 18; TEMP 98.1
--- NOTE | 2024-01-06 12:09 | P.PROGSL ---
Subjective DATE: 01/06/2024 FOLLOW UP VISIT. Patient with obstructive sleep apnea hypopnea syndrome return to sleep center for follow-up visit. Information from previous visit have been reviewed. Patient is using PAP equipment every night for the whole night, getting PAP supplies in time. The patient does not have significant problems with the mask, PAP unit and humidification. [place] sleepiness scale is slightly increased to 11. I checked information from PAP unit. PAP unit pressure 5-14, average 11.6 cm H2O. Usage is 100% for more then 4 hours, average 8.25 hours per night. Leak is slightly increased to 28.8 l/m, which is in acceptable range. Apnea Hypopnea Index is 0.8, which is normal. MEDICATIONS: Please see below During physical exam: GENERAL: A pleasant patient without any distress. VITAL SIGNS: Please see below, weight 248.8 pounds, BMI 38.8. HEENT: PERRLA, EOMI.low position of soft palate, Mallapati 4 . NECK: Supple. No JVD. LUNGS: Clear to percussion and to auscultation. Good air exchange. No wheezing or rhonchi. HEART: S1, S2 regular. ABDOMEN: Soft and nontender. Slightly obese EXTREMITIES: No clubbing or cyanosis. ECOSYSTEM ECOLOGY PROFESSOR: Awake, alert, and oriented x3. No focal deficit. Impressions: 1. Obstructive sleep apnea-hypopnea syndrome. Patient demonstrated great compliance with treatment, benefiting from treatment. 2. Obesity, BMI 38.8. 3. History of stroke x 2 about half year ago. 4. Hyperlipidemia. 5. History of sinusitis. 6. History of headaches. 7. Status post bilateral knee surgery. 8. Status post cholecystectomy. Plan: 1. Continue using PAP equipment every night for the whole night. 2. To change air filter at least 1-2 times per month. 3. PAP unit should stay lower then position of the head. 4. Advised patient to remove all remaining water from humidifier canister daily and make it dry after each usage. Refill canister with fresh distilled water before each usage. 5. Sleep hygiene with regular time in bed for at least 8 hours. 6. Precautions related to driving. No driving if feel any sleepiness. 7. I will maintain prescription for PAP supplies including mask, tube, filters. 8. Watching and losing weight. 9. Follow up visit in 6 months or earlier if patient has any problems. Thank you very much for allowing me to participate in the management of your patient. Yoan Lew MD, PhD, FAASM. Diplomat of [place] [employer], Sleep Medicine Board by [place] [employer] Receiving Checker of [place] [facility] [place] Objective - Vital Signs Vital Signs: Vital Signs Temp 98.1 F 01/06/24 11:37 Pulse 57 L 01/06/24 11:37 Resp 18 01/06/24 11:37 BP 119/69 01/06/24 11:37 Pulse Ox 96 01/06/24 11:37 FiO2 Intake & Output 01/05/24 01/06/24 01/06/24 18:59 06:59 18:59 Weight 112.661 kg Home Medications: Home Medications Medication Instructions Recorded Confirmed Type Multivitamins, Thera [Multivitamin 1 tab PO DAILY 02/11/23 02/17/23 History (formulary)] Omeprazole 20 mg PO DAILY 02/11/23 02/17/23 History Acetaminophen Tab [Tylenol] 650 mg PO Q6HR PRN tab 02/15/23 02/17/23 Rx Aspirin 81 mg PO DAILY #30 tab 02/15/23 02/17/23 Rx Clopidogrel [Plavix] 75 mg PO DAILY #30 tab 02/15/23 02/17/23 Rx Cyclobenzaprine [Flexeril] 10 mg PO TID PRN #10 tab 02/15/23 02/17/23 Rx Rosuvastatin Calcium [Crestor] 40 mg PO DAILY #30 tab 02/15/23 02/17/23 Rx Apixaban [Eliquis] 5 mg PO BID 01/06/24 01/06/24 History Atorvastatin [Lipitor] 40 mg PO DAILY 01/06/24 01/06/24 History Cholestyramine (with Sugar) 4 gm PO BID 01/06/24 01/06/24 History [Cholestyramine Packet] Famotidine 20 mg PO BID 01/06/24 01/06/24 History
== END ==
LOC: 3 N SLEEP 11:21
PROVIDERS: ATTEND Internal Medicine
DX: G47.33 Obstructive sleep apnea (adult) (pediatric) (principal); E66.9 Obesity, unspecified; E78.5 Hyperlipidemia, unspecified; Z87.09 Personal history of other diseases of the respiratory system; Z98.890 Other specified postprocedural states; Z90.49 Acquired absence of other specified parts of digestive tract; Z86.73 Personal history of transient ischemic attack (TIA), and cerebral infarction without residual deficits; Z86.69 Personal history of other diseases of the nervous system and sense organs; Z68.38 Body mass index [BMI] 38.0-38.9, adult; Z79.02 Long term (current) use of antithrombotics/antiplatelets; Z88.5 Allergy status to narcotic agent; Z79.01 Long term (current) use of anticoagulants
CPT/HCPCS: 99212

== ENCOUNTER → 2024-11-02 | Outpatient (CLI) | payer BC ==
[2024-11-02 12:06] VITALS: BP 121/77; PULSE 60; RESP 16; TEMP 98
--- NOTE | 2024-11-02 12:29 | P.PROGSL ---
Subjective DATE: 11/02/2024 FOLLOW UP VISIT. Patient with obstructive sleep apnea hypopnea syndrome return to sleep center for follow-up visit. Information from previous visit have been reviewed. Patient is using PAP equipment every night for the whole night, getting PAP supplies in time. The patient does not have significant problems with the mask, PAP unit and humidification. [place] sleepiness scale is 6, which is normal. I checked information from PAP unit. PAP unit pressure 5-14, average 10.4 cm H2O. Usage is 100% for more then 4 hours, average 7.75 hours per night. Leak is increased to 35.4 l/m, patient has green and mustache. Apnea Hypopnea Index is 0.8, which is perfect . I checked information from CPAP unit for the whole year. And this showed that patient is using CPAP every night MEDICATIONS have been reviewed, please see below. During physical exam: GENERAL: A pleasant patient without any distress. VITAL SIGNS: Please see below, weight is 236 lbs. HEENT: PERRLA, EOMI.low position of soft palate, Mallapati 4 . NECK: Supple. No JVD. LUNGS: Clear to percussion and to auscultation. Good air exchange. No wheezing or rhonchi. HEART: S1, S2 regular. ABDOMEN: Soft and nontender. Slightly obese EXTREMITIES: No clubbing or cyanosis. MASTER CRAFTSMAN: Awake, alert, and oriented x3. No focal deficit. Impressions: 1. Obstructive sleep apnea-hypopnea syndrome. Patient demonstrated great compliance with treatment, benefiting from treatment. 2. Obesity, BMI 38.0, patient lost 12 pounds since previous visit. 3. History of stroke x 2 about 1-1/2-year ago. 4. Hyperlipidemia. 5. History of sinusitis. 6. History of headaches. 7. Status post bilateral knee surgery. 8. Status post cholecystectomy. 9. tanker driver. Plan: 1. Continue using PAP equipment every night for the whole night. 2. Sleep hygiene with regular time in bed for at least 7.5-8 hours 3. PAP unit should stay lower then position of the head. 4. Advised patient to remove all remaining water from humidifier canister daily and make it dry after each usage. Refill canister with fresh distilled water before each usage. 5. Watching and continue losing weight weight. 6. Precautions related to driving. No driving if feel any sleepiness. Patient is aware about selling criminal liability for unsafe driving. 7. I will maintain prescription for PAP supplies including mask, tube, filters. 8. Follow up visit in 8 months or earlier if patient has any problems. Thank you very much for allowing me to participate in the management of your patient. Yoan Lew MD, PhD, FAASM. Diplomat of [place] [employer], Sleep Medicine Board by [place] [employer] Ui Developer of [place] [facility] [place] Objective - Vital Signs Vital Signs: Vital Signs Temp 98.0 F 11/02/24 12:04 Pulse 60 11/02/24 12:04 Resp 16 11/02/24 12:04 BP 121/77 11/02/24 12:04 Pulse Ox 98 11/02/24 12:04 FiO2 Intake & Output 11/01/24 11/02/24 11/02/24 18:59 06:59 18:59 Weight 107.048 kg Home Medications: Home Medications Medication Instructions Recorded Confirmed Type Multivitamins, Thera [Multivitamin 1 tab PO DAILY 02/11/23 11/02/24 History (formulary)] Omeprazole 20 mg PO DAILY 02/11/23 02/17/23 History Acetaminophen Tab [Tylenol] 650 mg PO Q6HR PRN tab 02/15/23 02/17/23 Rx Aspirin 81 mg PO DAILY #30 tab 02/15/23 02/17/23 Rx Clopidogrel [Plavix] 75 mg PO DAILY #30 tab 02/15/23 02/17/23 Rx Cyclobenzaprine [Flexeril] 10 mg PO TID PRN #10 tab 02/15/23 02/17/23 Rx Rosuvastatin Calcium [Crestor] 40 mg PO DAILY #30 tab 02/15/23 02/17/23 Rx Apixaban [Eliquis] 5 mg PO BID 01/06/24 11/02/24 History Atorvastatin [Lipitor] 40 mg PO DAILY 01/06/24 11/02/24 History Cholestyramine (with Sugar) 4 gm PO BID 01/06/24 11/02/24 History [Cholestyramine Packet] Famotidine 20 mg PO BID 01/06/24 11/02/24 History
== END ==
LOC: 3 N SLEEP 11:44
PROVIDERS: ATTEND Internal Medicine
DX: G47.33 Obstructive sleep apnea (adult) (pediatric) (principal); E66.9 Obesity, unspecified; E78.5 Hyperlipidemia, unspecified; Z68.38 Body mass index [BMI] 38.0-38.9, adult; Z86.73 Personal history of transient ischemic attack (TIA), and cerebral infarction without residual deficits; Z87.09 Personal history of other diseases of the respiratory system; Z86.69 Personal history of other diseases of the nervous system and sense organs; Z96.653 Presence of artificial knee joint, bilateral; Z90.49 Acquired absence of other specified parts of digestive tract; Z88.5 Allergy status to narcotic agent
CPT/HCPCS: 99212